=== PATIENT | female | born 1960 | race Caucasian/White ===

== ENCOUNTER → 2019-10-20 17:00 | Outpatient (BNVA) | payer MEDICARE, SELFPAY | PROVIDERS: Family Provider Internal Medicine; PCP Internal Medicine; Visit Provider Specialist | DX: S82.831A Other fracture of upper and lower end of right fibula, initial encounter for closed fracture (principal); X58.XXXA Exposure to other specified factors, initial encounter | CPT/HCPCS: 73610 ==

== ENCOUNTER 2019-10-28 21:40 | Emergency (ER) | payer MEDICARE, SELFPAY ==
[2019-10-28 22:31] VITALS: BP 154/110; PULSE 128; RESP 22; TEMP 36.8; O2SAT 95; BMI 24.9
[2019-10-28 23:26] LABS: Add Urine Microscopic? YES; Bilirubin Urine Neg (NEGATIVE); Blood Urine 3+ (Negative); Glucose Urine UA Norm (Normal); Ketones Urine Negative (Negative); Leukocyte Esterase Urine Negative (Negative); Nitrate Urine Negative (Negative); Protein Urine Neg (Negative); Specific Gravity, Urine 1.015 (1.005-1.030); Urine Appearance Clear (CLEAR); Urine Color Yellow (Yellow); Urobilinogen Urine Norm (Negative); pH Urine 5 (5-7)
[2019-10-28 23:28] LABS: Add Urine Culture? Yes; Bacteria Urine TRACE
--- NOTE | 2019-10-28 23:47 | CTR_ITS ---
PROCEDURE INFORMATION: Exam: CT Abdomen And Pelvis Without Contrast Exam date and time: 10/28/2019 11:52 PM Age: 58 years old Clinical indication: Abdominal pain; Flank; Right; Prior surgery; Surgery date: 6+ months; Surgery type: RT hip, spleenectomy; Additional info: Hematuria right flank pain TECHNIQUE: Imaging protocol: Computed tomography of the abdomen and pelvis without contrast. Total DLP: 904.01 mGy-cm Radiation optimization: All CT scans at this facility use at least one of these dose optimization techniques: automated exposure control; mA and/or kV adjustment per patient size (includes targeted exams where dose is matched to clinical indication); or iterative reconstruction. COMPARISON: CT Abdomen/Pelvis Renal [id number] 07/31/2018 1:55 PM FINDINGS: Lungs: Lung bases are clear. Mediastinum: There is a moderate size sliding-type hiatal hernia. Liver: 9 mm simple cyst in the caudate lobe. The liver is otherwise normal. Gallbladder and bile ducts: The gallbladder is normal. There is no biliary dilation. Pancreas: The pancreas is unremarkable. Spleen: The spleen is absent. Adrenals: The adrenal glands are unremarkable. Kidneys and ureters: Severe right hydronephrosis and diffuse hydroureter. There is a stone at the right ureterovesical junction measuring 5 x 3 mm axial dimension and 6 mm length. No intrarenal stones on the right. Nonobstructive left renal stones are present. There is a 5 x 4 x 3 mm stone in the proximal left ureter at the level of L3. No hydronephrosis on the left. The right-sided distal ureteral stone is visible on the principal architectural firm radiograph. Left-sided ureteral stone is not visible. Stomach and bowel: The stomach is unremarkable. The small bowel is nondilated. There is no sign of inflammation. There is mild distal colonic diverticulosis without evidence of diverticulitis. Appendix: The appendix is normal. Intraperitoneal space: There is no free air or significant intraperitoneal free fluid. Vasculature: There is mild aortic atherosclerotic disease. Lymph nodes: There is no lymphadenopathy in the retroperitoneum, mesentery, pelvis or inguinal regions. Bladder: The urinary bladder is unremarkable. Reproductive: The uterus is unremarkable. There is no adnexal mass or large cyst. Bones/joints: Mild degenerative disc disease L5-S1. The right hip prosthesis is intact and well aligned. Soft tissues: The abdominal wall is intact. CT/CT kidney stone [id number] IMPRESSION: 1. 6 mm obstructive stone at the right ureterovesical junction producing severe hydronephrosis. 2. 5 mm nonobstructive stone in the proximal left ureter. No hydronephrosis. 3. Nonobstructive left nephrolithiasis. 4. Incidental findings above. Radiation Dose CTDIVOL = (mGy): DLP = 904.01 (mGy-cm)
--- NOTE | 2019-10-29 00:01 | ED_ITS ---
HPI - Female Genitourinary General: Chief complaint: Urogenital-Female Stated complaint: FREQUENT URINATION/BACK PAIN Time Seen by Provider: 10/28/19 23:23 History of Present Illness: HPI Narrative: Right flank pain today with urinary frequency since yesterday. History kidney stone x1 MD elicited complaint: dysuria Associated symptoms: Reports no associated symptoms and nausea; Deny abdominal pain, headache(s) or vaginal discharge Review of Systems Narrative: Patient is a chronic pain patient. Does have right flank pain and urinary frequency Const: Denies: fever, chills or body aches Eyes: Denies: change in vision or blurry vision ENMT: Denies: throat pain or nasal congestion Card: Denies: chest pain or shortness of breath on exertion Resp: Denies: shortness of breath, productive cough or non-productive cough GI: Reports: nausea; Denies: abdominal pain or vomiting : Reports: flank pain (Right side) and urinary urgency; Denies: urinary incontinence or vaginal discharge Musc: Denies: extremity pain Skin/Breast: Denies: rash Neuro: Denies: headache Psych: Denies: anxiety or depression Iban/Lymph: Denies: easy bruising PFSH ED PFSH: Statuses (acute, chronic, etc) shown below reflect problem list status as previously entered and may not be historically accurate Medical History (Updated 10/21/19 @ 09:04 by Camelia Duarte MD) Avascular necrosis of bone of right hip (Acute) Other fracture of upper and lower end of right fibula, initial encounter for closed fracture (Acute) Healing Primary osteoarthritis of right hip (Acute) Trochanteric bursitis of right hip (Acute) Surgical History History of total right hip arthroplasty (Inactive) Social History Smoking and tobacco status: former smoker Quit status (tobacco): has quit using tobacco Alcohol intake: current Alcohol intake frequency: holidays/special occasions only Physical Exam Const: COMMON NORMALS: no apparent distress, average body habitus and oriented x3 HENMT: COMMON NORMALS: normocephalic HEAD & SCALP: normal to inspection and normocephalic FACE & SINUS: normal facial exam Eye: COMMON NORMALS: conjunctivae normal GENERAL EYE: normal appearance of both eyes CONJUNCTIVA: Yes conjunctivae normal Neck/C-Spine: COMMON NORMALS: no JVD Chest: COMMONS NORMALS: inspection of chest normal Resp: COMMON NORMALS: normal respiratory effort and clear to auscultation bilaterally AUSCULTATION: clear to auscultation bilaterally Cardio: COMMON NORMALS: no JVD, regular rate and regular rhythm RATE: regular rate RHYTHM: regular rhythm GI: COMMON NORMALS: normal to inspection, nondistended, normoactive bowel sounds : BLADDER/KIDNEY EXAM: Yes CVA tenderness on the right Back/Pelvis: GENERAL BACK: Yes CVA tenderness Extremity: COMMON NORMALS: normal to inspection and full ROM Neuro: COMMON NORMALS: oriented x3 Course Vital Signs: Vital signs: Vital Signs Temperature 98.3 F 10/28/19 22:31 Pulse Rate 128 H 10/28/19 22:31 Respiratory Rate 22 H 10/28/19 22:31 Blood Pressure 154/110 10/28/19 22:31 Pulse Oximetry 95 10/28/19 22:31 MDM - Female Lab Data: Labs: Lab Results 10/28/19 Range/Units 22:58 Urine Color Yellow (Yellow) Urine Appearance Clear (CLEAR) Urine pH 5 (5-7) Ur Specific Gravit y 1.015 (1.005-1.030) Urine Protein Neg (Negative) Urine Glucose (UA) Norm (Normal) Urine Ketones Negative (Negative) Urine Occult Blood 3+ H (Negative) Urine Nitrate Negative (Negative) Urine Bilirubin Neg (NEGATIVE) Urine Urobilinogen Norm (Negative) mg/dL Ur Leukocyte Beatrice ase Negative (Negative) Urine RBC 10-15 H (0-2) /hpf Urine WBC None (0-5) /hpf Ur Squamous Epith Cells None (0-5) Ur Transition Epit h Cell None /hpf Ur Renal Epithelia l Cell None /hpf Urine Bacteria Trace (NONE) Discharge Plan Discharge Prescriptions: No Action diazepam 10 mg tablet 10 mg PO BID PRNRF: 0 trazodone 150 mg tablet PO RF: 0 gabapentin 300 mg capsule 300 mg PO TID RF: 0 oxycodone-acetaminophen [Percocet] 7.5-325 mg tablet 1 tab PO TID PRNRF: 0 phenazopyridine [Pyridium] 100 mg tablet 100 mg PO TID PRNRF: 0 omeprazole 40 mg capsule,delayed release(DR/EC) 40 mg PO BID RF: 0 atorvastatin 20 mg tablet 20 mg PO ONCE RF: 0 Coding Level of Care Code ED Instant Printer Operator for Lyric Duran Exam Problem Focused
[2019-10-29 00:12] VITALS: RESP 16
[2019-10-29] MEDS: meperidine 50 mg/mL INJ IVP (00:12)
[2019-10-29] MEDS: sodium chloride 0.9% 1,000 ML 999 ML IV (00:12)
[2019-10-29] MEDS: ondansetron 2 mg/ML SDV 2 mL 8 MG IVP (00:13)
[2019-10-29 01:20] VITALS: PULSE 104; RESP 18; O2SAT 98
--- NOTE | 2019-10-29 10:01 | DCPLANNER ---
laboratory manager had message to schedule a follow up appointment for patient with Dr. Allen. laboratory manager called the office of Dr. Allen, spoke with Nelly, gave clinic patients information. laboratory manager was told that patients information would be printed and given to Mesha for review. Clinic will call patient with appointment information, human services case manager will call clinic for appointment information.
--- NOTE | 2019-11-04 12:46 | DCPLANNER ---
Patient had a follow up appointment scheduled for 10.30.[address] Schulte office, patient did attend the appointment.
== END 2019-10-29 01:20 | disposition home or self-care (01) ==
PROVIDERS: Emergency Medicine; Emergency Provider Nurse Practitioner Family; Family Provider Internal Medicine; PCP Internal Medicine
DX: R35.0 Frequency of micturition (principal); Z87.891 Personal history of nicotine dependence
CPT/HCPCS: 74176; 81003; 87086; 96360; 96374; 99282; J2175; J2405; J7030

== ENCOUNTER 2019-10-30 11:14 | Outpatient (CLI) | payer MEDICARE, SELFPAY ==
--- NOTE | 2019-10-30 11:18 | XR_ITS ---
WS: [id number] ABDOMEN 1 VIEW(S) HISTORY: RIGHT URETERAL STONE COMPARISON: 08/26/2018, CT 10/29/2019 Normal bowel gas pattern. Stable 7.8 mm lobulated calcification projects over the LEFT kidney. There is an additional smaller c luster of stones in the LEFT abdomen which are probably also present on prior studies. Distal RIGHT u reteral calcification described on 10/29/2019 measures 5 mm. Again identified at the expected location of the RIGHT UV junction. Prior RIGHT hip arthroplasty. IVC filter. XR/XR KUB [id number] IMPRESSION: 1. Distal RIGHT ureteral calcification measures 5 mm at the UV junction. 2. LEFT nephrolithiasis, stable.
== END 2019-10-30 11:15 | disposition home or self-care (01) ==
PROVIDERS: Family Provider Internal Medicine; PCP Internal Medicine; Visit Provider Urology
DX: N20.2 Calculus of kidney with calculus of ureter (principal)
CPT/HCPCS: 74018

== ENCOUNTER 2019-10-31 11:39 | Day surgery (SDC) | payer MEDICARE, SELFPAY ==
[2019-10-30 14:59] VITALS: BMI 24.5
[2019-10-31] VITALS (8 sets, daily range): BP systolic 124–150; BP diastolic 69–106; PULSE 72–90; RESP 16–18; TEMP 36.6–37.2; O2SAT 94–100
--- NOTE | 2019-10-31 | SCC_ITS ---
Procedure Done: 1. Cystoscopy, bilateral retrograde ureteropyelogram's 2. Right ureteroscopy 3. Left ureteroscopy with stone extraction 4. Left ureteral stent placement 51 seconds of fluoroscopic guidance, for a cumulative dose of 8.86 mGy, was provided to Dr. Allen by the radiology department. No permanent C-tawana images were obtained. [facility]
[2019-10-31] MEDS: sodium chloride 0.9% 1,000 ML 30 ML IV (11:45)
--- NOTE | 2019-10-31 11:55 | XR_ITS ---
WS: [id number] ABDOMEN KUB CLINICAL INFORMATION: Renal/ureteral calculi. COMPARISON: and CT FINDINGS: IVC filter. Right ROB. Normal bowel gas pattern. Mild lumbar curve convex right. Osteopenia. Stable clusters of subcentimeter left renal parenchymal calculi the largest measuring 7 mm unchanged. Previously described 5 mm right UVJ calculus not well seen today. XR/XR KUB [id number] Impression: 1. Stable clusters of subcentimeter left renal parenchymal calculi the largest measuring 7 mm. 2. Previously described 5 mm right UVJ calculus not well seen today.
[2019-10-31] MEDS: iohexol 300 mg/mL 50 mL Btl (OR ONLY) XX (12:10)
--- NOTE | 2019-10-31 12:18 | SC_ITS ---
WS: [id number] INTRAOPERATIVE TECHNIQUE: 1 Spot fluoroscopic images for intraoperative purposes. FLUOROSCOPY TIME: 51 seconds CLINICAL INFORMATION: intra-op COMPARISON: None. FINDINGS: Images obtained for intraoperative purposes SC/C-arm FL for Urology IMPRESSION: Images obtained for intraoperative purposes.
--- NOTE | 2019-10-31 12:41 | ANES.PREANES ---
Pre-Anesthetic Assessment Pre-Anesthetic Assessment: Height/Weight: Height 1.64 m Weight 65.771 kg Temp Pulse Resp BP Pulse Ox 98.9 F 72 18 125/80 94 10/31/19 12:07 10/31/19 12:07 10/31/19 12:07 10/31/19 12:07 10/31/19 12:07 Preop Diagnosis: Bilateral ureteral calculi Proposed Procedure: Operation Date: 10/31/19 13:00 Proposed Procedures p Cystoscopy 83213 25543 26401 n20 n20.1 n13.30(Not Applicable) - MD marissa Ortega Retrograde Pyelogram(Bilateral) - MD marissa Ortega Flexible Ureteroscopy(Not Applicable) - MD marissa Ortega Laser Lithotripsy(Not Applicable) - MD marissa Ortega Ureteral Stent Placement(Not Applicable) - Ben Allen MD Last intake: Intake Last Liquid Date 10/30/19 Last Liquid Time 19:00 Last Solid Date 10/30/19 Last Solid Time 19:00 Social: Social History: Tobacco Packs per day: 3 cigs a day x 42 years Exam: Pre-Anes Outpt Exam: alert, oriented x 3, clear to auscultation bilaterally and regular rate & rhythm Pulmonary: Comments: pneumonia recurrent : : None reported Comments: bilateral calcului GI: GI: GERD Comments: omeprazole well controlled Musc/skel: Musc/skel: Lower Back Pain Comments: right radiculopahy Neuropsych: Neuropsych: Anxiety Anesthetic Plan: ASA status: III Anesthesia: General PFSH Anesthesia PFSH: Social History Smoking and tobacco status: former smoker Quit status (tobacco): has quit using tobacco Alcohol intake: current Alcohol intake frequency: holidays/special occasions only Adopted: No Caregiver/support person: No Lives independently: No Marital status: Current occupational status: disabled Data Anesthesia Cardiac Studies: No Data to Display
[2019-10-31 13:11] LABS: OR HCG Qualitative Urine Negative (Negative)
--- NOTE | 2019-10-31 13:18 | PM.HPUD ---
H&P update H&P Update: DATE OF SURGERY/PROCEDURE: 10/31/19 DATE H&P PERFORMED: 10/30/19 CHANGES TO PREVIOUS DOCUMENTATION: Increased left renal colicky type symptoms. Resolution of right renal colicky symptoms. Unaware of having passed the right-sided stone. KUB shows new calcification in the area of the left distal ureter and the right distal ureteral calcification is no longer seen. PREOP DIAGNOSIS: Bilateral ureteral calculi. Possible spontaneous passage of right PRIMARY INDICATION FOR PROCEDURE: Bilateral ureteral stones PLANNED PROCEDURE: Operation Date: 10/31/19 13:00 Proposed Procedures p Cystoscopy 21122 25206 74913 n20 n20.1 n13.30(Not Applicable) - MD marissa Ortega Retrograde Pyelogram(Bilateral) - MD marissa Ortega Flexible Ureteroscopy(Not Applicable) - MD marissa Ortega Laser Lithotripsy(Not Applicable) - MD marissa Ortega Ureteral Stent Placement(Not Applicable) - Ben Allen MD Full H&P Medications/Allergies: Current Medications: Current Medications Generic Name Dose Route Start Last Admin Trade Name Freq PRN Reason Stop Dose Admin Sodium Chloride 1,000 mls @ 30 ml s/hr 10/31/19 12:00 10/31/19 11:45 Sodium Chloride 0.9% IV 11/01/19 11:59 30 mls/hr .Q24H ASHKAN Administration Perinent History: Medical/Surgical History: Medical History (Updated 10/30/19 @ 12:52 by Ben Allen MD) Avascular necrosis of bone of right hip (Acute) Other fracture of upper and lower end of right fibula, initial encounter for closed fracture (Acute) Healing Primary osteoarthritis of right hip (Acute) Renal and ureteric calculus (Acute) Trochanteric bursitis of right hip (Acute) Ureteral stone (Acute) Family History: Family History (Updated 10/29/19 @ 15:57 by BILLIE Jiménez) Mother Hypertension Social History: Social History Smoking and tobacco status: former smoker Quit status (tobacco): has quit using tobacco Alcohol intake: current Alcohol intake frequency: holidays/special occasions only Adopted: No Caregiver/support person: No Lives independently: No Marital status: Current occupational status: disabled A&P Assessment and plan (1) Ureteral stone: Proceed with planned surgery. Status: Acute Code(s): N20.1 - Calculus of ureter
[2019-10-31] MEDS: levofloxacin-dextrose 5 % 500 MG/100 ML PREMIX 100 MG IV (13:27)
--- NOTE | 2019-10-31 14:30 | PM.OP ---
Operative Report Date of procedure: 10/31/19 Pre-op Diagnosis: Bilateral ureteral calculi. Possible spontaneous passage of right Post-op Diagnosis: Spontaneous passage of right ureteral stone Persistence of left distal ureteral stone Post-op Findings: Right retrograde ureteropyelogram and right distal ureteroscopy demonstrated no residual stone. Left distal ureteral stone in expected position. Removed without difficulty with grasping forceps Procedure Done: 1. Cystoscopy, bilateral retrograde ureteropyelogram's 2. Right ureteroscopy 3. Left ureteroscopy with stone extraction 4. Left ureteral stent placement Implants: 24 cm x 4.7 Greenlandic left ureteral stent left indwelling. String attached distally Specimens removed/disposition: Left distal ureteral stone Pathology: other (stone) Surgeon: Ben Allen Anesthesia: General Estimated blood loss (mL): 0 Estimated blood loss: None Urine output: Not measured Complications: None Findings: The right distal ureteral stone had passed. The left distal ureteral stone (previously seen in the left proximal ureter) was in the expected position based on the preoperative KUB and removed without having to fragment it. Ureteral stent left indwelling at the completion of the procedure Condition: stable Disposition: PACU Brief History: Joselyn is a very pleasant 58-year-old white female recently diagnosed with bilateral ureteral stones right distal and left mid. The right was obstructing the left was not. No evidence of infection or renal failure. Admitted now for treatment. Preoperative KUB showed that the right distal ureteral stone was no longer seen and the left mid ureteral stone appeared to have migrated into the left distal ureteral area. Procedure: After routine preoperative evaluation examination and obtaining of informed consent she was taken to the operating suite on 10/31/2019 where general anesthesia was administered without difficulty after appropriate timeout was performed, SCDs confirmed to be functioning, preoperative antibiotics administered, beta-alberto protocol confirmed. Prepped and draped in usual sterile fashion in dorsolithotomy position pain careful attention to avoiding pressure points. 21 Greenlandic cystoscope with 30 degree lens was introduced into the urethral meatus and advanced into the bladder videoscopy. Bladder was systematically examined. The right ureteral orifice showed some edema. The left appeared to be normal. An 8 Greenlandic cone-tipped catheter was intubated into the right ureter orifice for a RIGHT RETROGRADE URETEROPYELOGRAM demonstrating no residual stone in the ureter. The ureter had significantly diminished in size after spontaneous passage. The catheter was intubated into the left ureteral orifice for the similar findings and confirmed the stone in the ureter approximately 3 cm above the ureteral orifice. Flexible tip guidewire was advanced of the left ureter easily bypassing the stone and then the distal ureter was attempted to be intubated with a 7.5 Greenlandic offset semirigid ureteroscope but the ureteral orifice was too tight for that. The distal ureter was then dilated with a 15 Greenlandic 4 cm balloon with no waist. This allowed easy passage of the offset semirigid ureteroscope and the stone was encountered in the expected position, grasped with 3 Greenlandic grasping forceps and withdrawn with absolutely no tension. The ureter was then reinspected. A retrograde ureteropyelogram was then performed and did show some edema with retention of contrast and for that reason it was decided to leave the stent indwelling. A 4.7 Greenlandic by 24 cm double-pigtail stent with distal ureteral string attached was then advanced over the guidewire through the cystoscope into appropriate position as confirmed via fluoroscopy and cystoscopy. The stent was confirmed to be draining. Bladder drained and the procedure completed. The string was shortened. She tolerated the procedure well without complications and was awakened in the operating room and returned to recovery in stable condition. PLANS: 1. Return to clinic next week for stent removal. 2. Continue routine medications with no new prescription
[2019-11-06 01:48] LABS: Stone Source LEFT URETER
== END 2019-10-31 15:42 | disposition home or self-care (01) ==
PROVIDERS: Anesthesiology; Family Provider Internal Medicine; PCP Internal Medicine; Visit Provider Urology
PROC: 0TJB8ZZ Inspection of Bladder, Via Natural or Artificial Opening Endoscopic (ICD-10-PCS; CPT 52000; principal; 2019-10-31 13:00)
PROC: (CPT 74420; 2019-10-31 13:00)
PROC: 0TJ98ZZ Inspection of Ureter, Via Natural or Artificial Opening Endoscopic (ICD-10-PCS; CPT 52351; 2019-10-31 13:00)
PROC: (CPT 50605; 2019-10-31 13:00)
DX: N20.1 Calculus of ureter (principal); M16.11 Unilateral primary osteoarthritis, right hip; Z87.891 Personal history of nicotine dependence
CPT/HCPCS: 52332; 52352; 12345; 36415; 74018; 76000; 82365; 84703; 88300; 96375; C1725; J1100; J1956; J2405; J2704; J2710; J3010; J3490; J7030

== ENCOUNTER → 2019-11-04 13:01 | Outpatient (BNVA) | payer MEDICARE, SELFPAY | PROVIDERS: Family Provider Internal Medicine; PCP Internal Medicine; Visit Provider Urology | DX: N20.0 Calculus of kidney (principal); Z96.0 Presence of urogenital implants; N13.30 Unspecified hydronephrosis | CPT/HCPCS: 81001 ==

== ENCOUNTER → 2019-11-10 15:55 | Outpatient (BNVA) | payer MEDICARE, SELFPAY | PROVIDERS: Family Provider Internal Medicine; PCP Internal Medicine; Visit Provider Specialist | DX: S82.891A Other fracture of right lower leg, initial encounter for closed fracture (principal); X58.XXXA Exposure to other specified factors, initial encounter | CPT/HCPCS: 73610 ==

== ENCOUNTER → 2019-11-25 14:28 | Outpatient (BNVA) | payer MEDICARE, SELFPAY | PROVIDERS: Family Provider Internal Medicine; PCP Internal Medicine; Visit Provider Anesthesiology | DX: M54.5 Low back pain (principal); M54.31 Sciatica, right side; M16.11 Unilateral primary osteoarthritis, right hip; F17.210 Nicotine dependence, cigarettes, uncomplicated; Z79.891 Long term (current) use of opiate analgesic | CPT/HCPCS: 99214 ==

== ENCOUNTER → 2020-04-29 13:13 | Outpatient (BNVA) | payer MEDICARE, SELFPAY | PROVIDERS: Family Provider Internal Medicine; PCP Internal Medicine; Visit Provider Nurse Practitioner | DX: M54.41 Lumbago with sciatica, right side (principal); M54.9 Dorsalgia, unspecified; Z79.891 Long term (current) use of opiate analgesic | CPT/HCPCS: 99213 ==

== ENCOUNTER → 2020-06-24 14:17 | Outpatient (BNVA) | payer MEDICARE, SELFPAY | PROVIDERS: Family Provider Internal Medicine; PCP Internal Medicine; Visit Provider Nurse Practitioner | DX: M54.31 Sciatica, right side (principal); M16.11 Unilateral primary osteoarthritis, right hip; S06.9X9A Unspecified intracranial injury with loss of consciousness of unspecified duration, initial encounter; X58.XXXA Exposure to other specified factors, initial encounter; M54.9 Dorsalgia, unspecified; Z79.891 Long term (current) use of opiate analgesic | CPT/HCPCS: 99214 ==

== ENCOUNTER → 2020-07-22 14:05 | Outpatient (BNVA) | payer MEDICARE, SELFPAY | PROVIDERS: Family Provider Internal Medicine; PCP Internal Medicine; Visit Provider Anesthesiology | DX: G89.4 Chronic pain syndrome (principal); M54.31 Sciatica, right side; M54.9 Dorsalgia, unspecified; Z79.891 Long term (current) use of opiate analgesic; Z71.6 Tobacco abuse counseling | CPT/HCPCS: 99214 ==

== ENCOUNTER 2020-08-20 15:09 | Outpatient (CLI) | payer MEDICARE, SELFPAY ==
--- NOTE | 2020-08-20 15:17 | MM_ITS ---
WS: [id number] BILATERAL DIGITAL SCREENING MAMMOGRAPHY WITH CAD CLINICAL INFORMATION: SCREENING HISTORY: Screening mammogram. No current complaints. COMPARISON: TECHNIQUE: Bilateral CC and MLO views. FINDINGS: The breasts are composed of heterogeneous fibroglandular density tissue, which can limit the detectio n of small underlying mass lesions. No suspicious mass, asymmetry, calcifications, or architectural d istortion. No evidence of malignancy. A few tiny punctate calcifications are stable. MM/[place] [id number] IMPRESSION: BI-RADS: 2-Benign FOLLOW UP: 1 Year Follow-up Recommend return to annual screening mammography.
== END 2020-08-20 15:10 | disposition home or self-care (01) ==
LOC: RADSHAW 15:14
PROVIDERS: PCP Internal Medicine; Visit Provider Internal Medicine
DX: Z12.31 Encounter for screening mammogram for malignant neoplasm of breast (principal)
CPT/HCPCS: 77067

== ENCOUNTER → 2020-09-30 13:34 | Outpatient (BNVA) | payer MEDICARE, SELFPAY | PROVIDERS: Family Provider Internal Medicine; PCP Internal Medicine; Visit Provider Anesthesiology | DX: G89.29 Other chronic pain (principal); M54.41 Lumbago with sciatica, right side; M54.9 Dorsalgia, unspecified; Z79.891 Long term (current) use of opiate analgesic | CPT/HCPCS: 99213; 99214 ==

== ENCOUNTER → 2020-12-07 13:49 | Outpatient (BNVA) | payer MEDICARE, SELFPAY | PROVIDERS: Family Provider Internal Medicine; PCP Internal Medicine; Visit Provider Anesthesiology | DX: G89.29 Other chronic pain (principal); M54.41 Lumbago with sciatica, right side; M54.9 Dorsalgia, unspecified; Z79.891 Long term (current) use of opiate analgesic | CPT/HCPCS: 99213 ==

== ENCOUNTER 2021-01-07 14:15 | Outpatient (CLI) | payer MEDICARE, SELFPAY ==
--- NOTE | 2021-01-07 14:31 | XR_ITS ---
WS: [id number] ELBOW LEFT TECHNIQUE: 3 views of the left elbow CLINICAL INFORMATION: LEFT ELBOW PAIN COMPARISON: None. FINDINGS: No significant joint effusion. Distal humerus is normal in appearance. Normal radial head. Normal ole cranon. No evidence of acute fracture dislocation. XR/XR elbow LT min 3V* [id number] IMPRESSION: Unremarkable left elbow
== END 2021-01-07 14:16 | disposition home or self-care (01) ==
PROVIDERS: PCP Internal Medicine; Visit Provider Nurse Practitioner Family
DX: M25.522 Pain in left elbow (principal)
CPT/HCPCS: 73080

== ENCOUNTER → 2021-02-02 13:45 | Outpatient (BNVA) | payer MEDICARE, SELFPAY | PROVIDERS: PCP Internal Medicine; Visit Provider Anesthesiology | DX: G89.29 Other chronic pain (principal); M54.9 Dorsalgia, unspecified; M54.41 Lumbago with sciatica, right side; M79.632 Pain in left forearm; Z79.891 Long term (current) use of opiate analgesic | CPT/HCPCS: 99214 ==

== ENCOUNTER → 2021-03-31 13:08 | Outpatient (BNVA) | payer MEDICARE, SELFPAY | PROVIDERS: PCP Internal Medicine; Visit Provider Anesthesiology | DX: G89.29 Other chronic pain (principal); M54.41 Lumbago with sciatica, right side; M54.9 Dorsalgia, unspecified; Z79.891 Long term (current) use of opiate analgesic; Z87.891 Personal history of nicotine dependence | CPT/HCPCS: 99213 ==

== ENCOUNTER → 2021-04-04 08:21 | Outpatient (BNVA) | payer MEDICARE, SELFPAY | PROVIDERS: PCP Internal Medicine; Referring Provider Internal Medicine; Visit Provider Specialist | DX: M25.522 Pain in left elbow (principal); M79.632 Pain in left forearm; M79.7 Fibromyalgia; M77.8 Other enthesopathies, not elsewhere classified; Z87.891 Personal history of nicotine dependence | CPT/HCPCS: 20550; 95885; 95908; 99202; J1030; J3490 ==

== ENCOUNTER → 2021-05-26 13:55 | Outpatient (BNVA) | payer MEDICARE, SELFPAY | PROVIDERS: PCP Internal Medicine; Visit Provider Anesthesiology | DX: G89.29 Other chronic pain (principal); M54.41 Lumbago with sciatica, right side; Z79.891 Long term (current) use of opiate analgesic | CPT/HCPCS: 99213 ==

== ENCOUNTER 2021-07-11 11:28 | Outpatient (CLI) | payer MEDICARE, SELFPAY ==
--- NOTE | 2021-07-11 | XR_ITS ---
WS: [id number] LUMBAR SPINE TECHNIQUE: 3 views of the lumbar spine CLINICAL INFORMATION: SACROILIAC JOINT PAIN LUMBAGO WITH SCIATIACA LEFT SIDE COMPARISON: None. FINDINGS: Five sig-lea-klsynzv lumbar vertebral bodies. IVC filter. Osteopenia. Right ROB. Disc space narrowing L5-S1 with vacuum disc phenomenon. Mild facet arthropathy L5-S1 with bony foraminal narrowing. Mild degenerative arthritis sacroiliac joints. IMPRESSION: 1. Right ROB. 2. Disc space narrowing worse L5-S1 vacuum disc phenomenon. 3. Mild degenerative arthritis sacroiliac joints. 4. Osteopenia. 5. No acute appearing compression fractures.
== END 2021-07-11 11:29 | disposition home or self-care (01) ==
PROVIDERS: PCP Internal Medicine; Visit Provider Nurse Practitioner Family
DX: M53.3 Sacrococcygeal disorders, not elsewhere classified (principal); M54.42 Lumbago with sciatica, left side; Z96.641 Presence of right artificial hip joint; M46.1 Sacroiliitis, not elsewhere classified; M85.80 Other specified disorders of bone density and structure, unspecified site
CPT/HCPCS: 72100

== ENCOUNTER → 2021-07-27 13:30 | Outpatient (BNVA) | payer MEDICARE, SELFPAY | PROVIDERS: PCP Internal Medicine; Visit Provider Anesthesiology | DX: G89.29 Other chronic pain (principal); M54.50 Low back pain, unspecified; Z79.891 Long term (current) use of opiate analgesic | CPT/HCPCS: 99213 ==

== ENCOUNTER 2021-08-18 10:53 | Outpatient (CLI) | payer MEDICARE, SELFPAY ==
--- NOTE | 2021-08-18 11:00 | MR_ITS ---
WS: [id number] MRI LUMBAR SPINE NONCONTRAST TECHNIQUE: Sagittal T1, T2 and STIR imaging. Axial T1 and T2 imaging. CLINICAL INFORMATION: M54.16 - Radiculopathy, lumbar region COMPARISON: None. FINDINGS: Mild lumbar curve. No acute compression. No high-grade central canal stenosis. L1-L2: Mild disc bulging with slight effacement of ventral thecal sac. Mild facet arthropathy. Spinal canal and foramen are patent. L2-L3: Mild annular bulging with mild central canal stenosis. Narrowing of the subarticular recess bi laterally. Mild facet arthropathy. Foramen are patent. Tiny annular fissure. L3-L4: No significant disc bulging. Mild facet arthropathy. Spinal canal and foramen are patent. L4-L5: Mild annular bulging with slight narrowing of the subarticular recess bilaterally. Slight encr oachment traversing L5 nerve roots. Foramen are patent. Mild facet arthropathy. L5-S1: Small bilobed central and left pericentral disc protrusion with impingement on traversing left S1 nerve root. Recommend correlation for left S1 nerve root symptoms. Mild right and no significant left foraminal narrowing. MR/MR lumbar spine wo con* [id number] IMPRESSION: 1. Mild lumbar curve. No acute compression. No high-grade central canal stenos is. 2. Small central and left pericentral disc protrusion impinges the traversing left S1 nerve root in the subarticular recess. Recommend correlation left S1 ne rve root symptoms. 3. Mild annular bulging L2-3 with a small annular fissure. Mild central canal stenosis. Slight encroachment traversing L3 nerve roots bilaterally. 4. Annular bulging L4-5 with slight encroachment on the traversing L5 nerve ro ots bilaterally. 5. Shallow bilobed central protrusion L1-2 with slight effacement of ventral t hecal sac.
== END 2021-08-18 10:54 | disposition home or self-care (01) ==
LOC: RADSHAW 10:56
PROVIDERS: PCP Internal Medicine; Visit Provider Physician Assistant
DX: M54.16 Radiculopathy, lumbar region (principal); M51.26 Other intervertebral disc displacement, lumbar region
CPT/HCPCS: 72148

== ENCOUNTER → 2021-09-01 08:19 | Outpatient (BNVA) | payer MEDICARE, SELFPAY | PROVIDERS: PCP Internal Medicine; Visit Provider Anesthesiology | DX: M54.50 Low back pain, unspecified (principal); G89.29 Other chronic pain; M54.16 Radiculopathy, lumbar region; M51.37 Other intervertebral disc degeneration, lumbosacral region | CPT/HCPCS: 62323; J1040; J3490 ==

== ENCOUNTER → 2021-10-17 00:01 | Outpatient (BNVA) | payer MEDICARE, SELFPAY | PROVIDERS: PCP Internal Medicine; Visit Provider Orthopaedic Surgery | DX: M54.16 Radiculopathy, lumbar region (principal) | CPT/HCPCS: 87635 ==

== ENCOUNTER → 2021-10-18 10:18 | Outpatient (BNVA) | payer MEDICARE, SELFPAY | PROVIDERS: PCP Internal Medicine; Visit Provider Anesthesiology | DX: G89.29 Other chronic pain (principal); M54.16 Radiculopathy, lumbar region; M51.37 Other intervertebral disc degeneration, lumbosacral region; Z79.891 Long term (current) use of opiate analgesic; Z87.891 Personal history of nicotine dependence | CPT/HCPCS: 99213 ==

== ENCOUNTER → 2021-10-24 00:01 | Outpatient (BNVA) | payer MEDICARE, SELFPAY | PROVIDERS: PCP Internal Medicine; Visit Provider Orthopaedic Surgery | DX: M51.37 Other intervertebral disc degeneration, lumbosacral region (principal); M54.16 Radiculopathy, lumbar region | CPT/HCPCS: 87635 ==

== ENCOUNTER 2021-10-28 06:31 | Day surgery (SDC) | payer MEDICARE, SELFPAY ==
[2021-10-27 12:03] VITALS: BMI 24.9
--- NOTE | 2021-10-27 12:25 | ANES.PREANE2 ---
Pre-Anesthetic Assessment Pre-Anesthetic Assessment: Height/Weight: Height 1.63 m Weight 65.771 kg Preop Diagnosis: Bilateral ureteral calculi. Possible spontaneous passage of right Proposed Procedure: Operation Date: 10/28/21 08:00 Proposed Procedures p Lumbar Spine Decompression L5/S1(Not Applicable) - Hector Romero, DO Was Beta Vicki taken within 24 hours: N/A Was Clonidine taken within 24 hours: N/A Social: Social History: Tobacco and No alcohol Exam: Pre-Anes Outpt Exam: alert, oriented x 3, clear to auscultation bilaterally and regular rate & rhythm Airway: Submandibular: WNL Cervical ROM: WNL MP: 1 Additional comments: PROFOUND DENTAL DISEASE THROUGHOUT Pulmonary: Pulmonary: COPD CV/HEM: CV/HEM: None reported : : None reported Hepatic: Hepatic: None reported GI: GI: GERD Metabolic: Metabolic: Hyperlipidemia Musc/skel: Musc/skel: Lower Back Pain, OA/DJD and Weakness Comments: Left Leg Pain Neuropsych: Neuropsych: Anxiety Anesthetic Plan: ASA status: 3 Anesthesia: General PFSH Anesthesia PFSH: Medical History Acute back pain Anorexia Arthritis of right hip Avascular necrosis of bone of right hip CA of rectum Chronic back pain Chronic depression Encounter for long-term opiate analgesic use NICOLE (generalized anxiety disorder) Hx of hepatitis C Left forearm pain Opioid contract exists Other fracture of upper and lower end of right fibula, initial encounter for closed fracture Primary osteoarthritis of right hip Renal and ureteric calculus Sciatica, right side Trochanteric bursitis of right hip Ureteral calculus, right Ureteral stone Surgical History H/O left knee surgery History of rectal surgery History of total right hip arthroplasty Hx of brain surgery Hx of dilation and curettage Hx of lithotripsy Hx of splenectomy Hx of tonsillectomy Status post laser lithotripsy of ureteral calculus Family History Mother Hypertension Social History Smoking and tobacco status: former smoker Quit status (tobacco): has quit using tobacco Second hand smoke exposure: No Alcohol intake: never Adopted: No Caregiver/support person: No Lives independently: No Marital status: Current occupational status: disabled History of recent travel: No Data Anesthesia Cardiac Studies: No Data to Display
[2021-10-28] VITALS (18 sets, daily range): BP systolic 122–174; BP diastolic 71–102; PULSE 60–87; RESP 15–20; TEMP 36.1–36.8; O2SAT 93–100
--- NOTE | 2021-10-28 | SCC_ITS ---
Procedure Done: 1. L5/S1 laminectomy with partial facetectomy and diskectomy 8.2 seconds of fluoroscopic guidance, for a cumulative dose of 2.06 mGy, was provided to Dr. Romero by the radiology department. C-arm images of the lumbar spine were saved for the patient's permanent record. [facility]
--- NOTE | 2021-10-28 | XR_ITS ---
WS: [id number] XR lumbar spine 1V [id number] REASON FOR EXAM: lumbar decompression FINDINGS: Surgical device overlying the left L5-S1 disc space. XR/XR lumbar spine 1V [id number] IMPRESSION: Intraoperative lumbar spine localization.
[2021-10-28] MEDS: sodium chloride 0.9% 1,000 ML 30 ML IV (06:57)
[2021-10-28] MEDS: fentaNYL 50 mcg/mL INJ 2mL IVP (07:10)
--- NOTE | 2021-10-28 07:18 | P.ANESUD_ITS ---
Pre-Anesthetic Update Pre-Anesthetic Assessment: Date of Surgery/Procedure: 10/28/21 Preop Nedra gnosis: Lumbar Radiculopathy L5-S1 Proposed Procedure: Operation Date: 10/28/21 08:00 Proposed Procedures p Lumbar Spine Decompression L5/S1(Not Applicable) - Hector Romero, DO Any changes to Pre-Anesthetic Assessment?: No Last Intake: Intake Last Liquid Date 10/27/21 Last Liquid Time 21:30 Last Solid Date 10/27/21 Last Solid Time 20:00 Vitals: Temperature 98.3 F 10/28/21 06:45 Temperature Source Temporal Artery S can 10/28/21 06:45 Pulse Rate 78 10/28/21 06:45 Pulse Rhythm 10/28/21 06:49 Pulse Strength 3+ Normal 10/28/21 06:49 Respiratory Rate 18 10/28/21 07:10 Respiratory Effort Non-Labored 10/28/21 07:10 Respiratory Depth Normal 10/28/21 07:10 Respiratory Patter n 10/28/21 07:10 Blood Pressure 142/88 10/28/21 06:45 Blood Pressure Anne n 106 10/28/21 06:45 Pulse Oximetry 95 10/28/21 07:10 Oxygen Delivery Me thod 10/28/21 06:49 Exam: Pre-Anes Outpt Exam: alert, oriented x 3, clear to auscultation bilaterally and regular rate & rhythm Cardiac Studies: No Data to Display
--- NOTE | 2021-10-28 08:59 | PM.HP ---
Providers/Chief Complaint Primary Care Provider: Flor Padilla MD Chief Complaint: Lumbar radiculopathy History of Present Illness Joselyn Dye is a 60 year old female patient who is here today to follow up after steroid injections with Dr. Talbert. Per patient injection did not relieve pain. Patient rates pain at 8/10 in clinic today. Patient has been taking oxycodone QID for pain. Review of Systems Narrative: General ROS: negative for weight changes, fever ENT ROS: negative for nasal congestion, drainage or bleeding, sore throat, dysphagia or ear pain Eyes: PERRL Hematological and Lymphatic ROS: negative for swollen glands or abnormal bleeding Endocrine ROS: negative for polyuria/polydpsia or new changes in weight Respiratory ROS: negative for cough, shortness of breath, or wheezing Cardiovascular ROS: negative for chest pain or dyspnea on exertion Gastrointestinal ROS: negative for reflux, abdominal pain, change in bowel habits, or black or bloody stools Musculoskeletal ROS: negative for back pain, neck pain, or joint pain or swelling except for current problem Neurological ROS: negative for TIA or stoke symptoms Skin: no rashes Medications/Allergies Home Medications Medication Instructions Recorded Confirmed Last Taken Type atorvastatin 20 mg tablet 20 mg PO BEDTIME 10/20/19 10/28/21 10/27/21 History diazepam 10 mg tablet 10 mg PO DAILY PRN 10/20/19 10/28/21 10/27/21 History omeprazole 40 mg capsule,delayed 40 mg PO DAILY 10/20/19 10/28/21 10/27/21 History release trazodone 150 mg tablet 150 mg PO BEDTIME 10/20/19 10/28/21 10/27/21 History Wheelchair #1 ea 08/25/21 10/18/21 Unknown Rx gabapentin 300 mg capsule 300 mg PO TID 30 Days #90 cap 10/18/21 10/28/21 10/28/21 Rx oxycodone-acetaminophen 7.5 mg-325 1 tab PO QID PRN 30 Days #120 tab 10/18/21 10/28/21 10/28/21 Rx mg tablet Allergies Allergy/AdvReac Type Severity Reaction Status Date / Time hydrocodone Allergy Unknown Verified 10/28/21 06:43 PFSH Acute PFSH: Medical History Acute back pain Anorexia Arthritis of right hip Avascular necrosis of bone of right hip CA of rectum Chronic back pain Chronic depression Encounter for long-term opiate analgesic use NICOLE (generalized anxiety disorder) Hx of hepatitis C Left forearm pain Opioid contract exists Other fracture of upper and lower end of right fibula, initial encounter for closed fracture Primary osteoarthritis of right hip Renal and ureteric calculus Sciatica, right side Trochanteric bursitis of right hip Ureteral calculus, right Ureteral stone Surgical History H/O left knee surgery History of rectal surgery History of total right hip arthroplasty Hx of brain surgery Hx of dilation and curettage Hx of lithotripsy Hx of splenectomy Hx of tonsillectomy Status post laser lithotripsy of ureteral calculus Family History Mother Hypertension Social History Smoking and tobacco status: former smoker Quit status (tobacco): has quit using tobacco Second hand smoke exposure: No Alcohol intake: never Adopted: No Caregiver/support person: No Lives independently: No Marital status: Current occupational status: disabled History of recent travel: No Vitals/I&O/Wt Last Vital Signs Temp 98.3 F 10/28/21 06:45 Pulse 78 10/28/21 06:45 Resp 18 10/28/21 07:10 BP 142/88 10/28/21 06:45 Pulse Ox 95 10/28/21 07:10 Weight last 48 hrs Weight 145 lb Weight 145 lb Physical Exam Narrative: EXAM NARRATIVE: CONSTITUTIONAL: The patient is a normal appearing [] in no apparent distress. GENERAL: Patient in no acute distress. CARDIAC: Regular rate and rhythm. CHEST: Normal inspiratory effort, normal respiratory rate. ABDOMEN: Soft and nontender. SKIN: Clear, warm and intact. NEURO?PSYCH: The patient is alert and oriented to person, place and time. Sensorv /SILT Motor StrengthShoulder abduction C5 5/5Wrist extension C6 5/5Elbow extension C7 5/5Hand Nurse Discharge Planner C8 5/5Finger abduction T15/5 Radial/ Ulnar/ Median n intact LowerSensory (SILT)Motor StrengthHin flexion L2/3Ant/inner thigh 5/5Hip adduction L2/3 5/5Knee extension L4 Lat thigh, 5/5Toe dorsiflexion L5 5/5Ankle dorsiflexion L5/ F69Dykoelz flexion S1 5/5 DTRBleeps 2+Triceps 2+Brachioradialis 2+Patellar 2+Achilles 2+ MUSCULOSKELETAL: [] UPPEREXTREMITIES: The patient had full active ROM in fingers, wrist, elbow, and shoulder. The patient demonstrated ability to fully flex/extend/abduct/adduct fingers, make ok sign, cross 2nd/3rd digits, extend 1st digit fully.. Radial pulse 2+, CR<2 seconds. LOWER EXTREMITIES: Pt has full, active ROM of toes, ankle, knee, and hip. Dorsalis pedis/posterior tibialis pulses 2+, CR<2 seconds. SPINE: Skin warm, dry, intact. A&P Assessment and plan (1) Lumbar stenosis with neurogenic claudication: Left L5/S1 micro disk Status: Acute Attestations Medical Necessity Statement*: failed conservative tx Coding Level of Care Code Acute Wood Tank Erector for Domi Renee Diagnoses Lumbar stenosis with neurogenic claudication M48.062
--- NOTE | 2021-10-28 10:24 | P.OP_ITS ---
Operative Report Date of procedure: October 28, 2021 Pre-op Diagnosis: Lumbar Radiculopathy L5-S1 Post-op diagnosis: same Procedure Done: 1. L5/S1 laminectomy with partial facetectomy and diskectomy Surgeon: Hector Romero Event Lighting Specialist: Orlando Plata Event Lighting Specialist: The surgical technologist, Orlando Plata, ZAIRE was needed for his expertise under the microscope. He was important and necessary throughout the procedure to complete in a safe and timely manner. He assisted with patient positioning prepping and draping tissue retraction suctioning of the operative field protection of the dural sac and tissue closure Anesthesia: General Estimated blood loss (mL): 5 Condition: stable Disposition: PACU Procedure: 1. L5/S1 laminectomy with partial facetectomy and diskectomy Patient is brought to the operative suite. After undergoing anesthesia they are placed in the prone position. All areas of impingement are well padded. Patient is then prepped and draped in the normal sterile fashion. A skin incision is made over the L5/S1 level. This is confirmed under c-arm guidance. A series of dilators are passed and the tubular retractor is docked on the L5 lamina. A bovie is used to clear the soft tissue off the lamina and the L 5/S1 facet joint. A high speed stefan is then used to perform the laminectomy and take down the medial aspect of the L 5/S1 facet joint. A kerrison rongeure was then used to take down the remaining lamina and smooth the edge of the laminectomy up to the point where the ligamentum flavum attaches. Attention was then brought to the medial aspect of the facet joint. The rem aining medial aspect of the superior and inferior aspect of the facet joint were taken down with the kerrison from the pedicle of L5 to S1. The facet joint had significant hypertrophy. Attention was then brought to the Ligamentum Flavum. The ligament was taken down from the lamina of L5 to S1 and out medially to the remaining facet joint. The ligament was thick. The dura was then exposed. The dura was in good repair. The S1 nerve was then retracted medially with a Geri'Georgie nerve root retractor. The disc was identified and was removed with a micropituitary the disc base was irrigated any free fragments were removed with a micropituitary The L5 nerve was then traced with a curette out the L5/S1 foramen and found to be adequately decompressed. The S1 nerve was traced with a curette around the S1 pedicle. The lateral recess was opened with a kerrison helping to further decompress the S1 nerve. Wound is then irrigated copiously with saline and surgiflo is used to stop any bleeding. The tubular retractor is removed and the wound is closed with vicryl and monocryl suture. Glue is then used to protect the wound. A sterile dressing is then placed. Patient was then placed in the supine position and transferred to the PACU in stable condition.
[2021-10-28] MEDS: HYDROmorphone 1 mg/mL INJ 1 mL 0.2 MG IVP (11:12)
[2021-10-28] MEDS: oxyCODONE 5 mg IR Tab/Cap 20 MG PO (11:13)
--- NOTE | 2021-10-28 11:37 | PC.NURSE ---
Dr. Pereyra called and notifed that patient was shivering and had been given several warm blankets; 12.5mg of demerol order received.
[2021-10-28] MEDS: meperidine 50 mg/mL INJ 12.5 MG IVP (11:39)
--- NOTE | 2021-10-28 13:16 | ANE.PACU2 ---
Inpatient post-anesthesia follow up: Airway intact: Yes Vital signs: Temperature 98 F Pulse Rate 82 Respiratory Rate 19 Blood Pressure 133/91 Pulse Oximetry 94 Oxygen Delivery Me thod Room Air Oxygen Flow Rate 2 Fraction of Inspir ed Oxygen Hydration adequate: Yes Nausea and vomiting: No Pain level: 2 Mental status: Baseline
== END 2021-10-28 13:10 | disposition home or self-care (01) ==
PROVIDERS: PCP Internal Medicine; Visit Provider Orthopaedic Surgery
PROC: (CPT 63005; principal; 2021-10-28 08:00)
DX: M48.062 Spinal stenosis, lumbar region with neurogenic claudication (principal); J44.9 Chronic obstructive pulmonary disease, unspecified; K21.9 Gastro-esophageal reflux disease without esophagitis; E78.5 Hyperlipidemia, unspecified; F41.9 Anxiety disorder, unspecified; M16.10 Unilateral primary osteoarthritis, unspecified hip; Z85.048 Personal history of other malignant neoplasm of rectum, rectosigmoid junction, and anus; Z86.19 Personal history of other infectious and parasitic diseases; Z87.891 Personal history of nicotine dependence
CPT/HCPCS: 63047; 72020; 76000; 96374; 96375; J0690; J1100; J1170; J2175; J2310; J2370; J2405; J2704; J2710; J3010; J3490; J7030

== ENCOUNTER → 2022-01-26 13:04 | Outpatient (BNVA) | payer MEDICARE, SELFPAY | PROVIDERS: PCP Internal Medicine; Visit Provider Orthopaedic Surgery | DX: Z47.89 Encounter for other orthopedic aftercare (principal); Z98.890 Other specified postprocedural states | CPT/HCPCS: 99024 ==

== ENCOUNTER 2022-02-08 12:02 | Outpatient (CLI) | payer MEDICARE, SELFPAY ==
--- NOTE | 2022-02-08 12:10 | MM_ITS ---
WS: [id number] BILATERAL 3D TOMOSYNTHESIS DIGITAL SCREENING MAMMOGRAPHY WITH CAD CLINICAL INFORMATION: SCREENING HISTORY: Screening mammogram. No current complaints. COMPARISON: August 20, 2020 TECHNIQUE: Bilateral CC and MLO views. FINDINGS: Scattered fibroglandular densities bilaterally. A few incidental punctate calcifications. 6mm asymmet ricky density anterior RIGHT breast best seen on the MLO view. Recommend spot compression views and ult rasound for further evaluation. LEFT breast is unremarkable and unchanged. MM/[place] [id number] IMPRESSION: BI-RADS: 0-Incomplete: Need additional imaging evaluation FOLLOW UP: Need Additional Imaging Recommend RIGHT breast diagnostic mammography and ultrasound for further evalua tion.
== END 2022-02-08 12:03 | disposition home or self-care (01) ==
PROVIDERS: PCP Internal Medicine; Visit Provider Internal Medicine
DX: Z12.31 Encounter for screening mammogram for malignant neoplasm of breast (principal)
CPT/HCPCS: 77063; 77067

== ENCOUNTER 2022-03-27 13:36 | Outpatient (CLI) | payer MEDICARE, SELFPAY ==
--- NOTE | 2022-03-27 13:49 | MM_ITS ---
WS: [id number] RIGHT 3D TOMOSYNTHESIS DIGITAL MAMMOGRAPHY WITH CAD CLINICAL INFORMATION: ABNORMAL MAMMO COMPARISON: March 27, 2022 TECHNIQUE: 3 views of the right breast were obtained. FINDINGS: Scattered fibroglandular densities of the right breast. Previously described 6 mm asymmetric density inferior RIGHT breast not as well seen today on the spot compression views. This appears to partially compress out. ULTRASOUND BREAST RIGHT TECHNIQUE: Ultrasound right breast focused area of concern. CLINICAL INFORMATION: ABNORMAL MAMMO FINDINGS: Ultrasound RIGHT breast 10 to 2:00 position. Normal underlying parenchymal tissue. Dense band of pare nchymal tissue at 10:00. No cystic or solid lesions. No suspicious lesions to target for biopsy. MM/[place] [id number] IMPRESSION: BI-RADS: 2-Benign FOLLOW UP: 1 Year Follow-up Recommend return to annual screening mammography.
--- NOTE | 2022-03-27 14:18 | US_ITS ---
WS: [id number] RIGHT 3D TOMOSYNTHESIS DIGITAL MAMMOGRAPHY WITH CAD CLINICAL INFORMATION: ABNORMAL MAMMO COMPARISON: March 27, 2022 TECHNIQUE: 3 views of the right breast were obtained. FINDINGS: Scattered fibroglandular densities of the right breast. Previously described 6 mm asymmetric density inferior RIGHT breast not as well seen today on the spot compression views. This appears to partially compress out. ULTRASOUND BREAST RIGHT TECHNIQUE: Ultrasound right breast focused area of concern. CLINICAL INFORMATION: ABNORMAL MAMMO FINDINGS: Ultrasound RIGHT breast 10 to 2:00 position. Normal underlying parenchymal tissue. Dense band of pare nchymal tissue at 10:00. No cystic or solid lesions. No suspicious lesions to target for biopsy. US/US breast RT limited* [id number] IMPRESSION: BI-RADS: 2-Benign FOLLOW UP: 1 Year Follow-up Recommend return to annual screening mammography.
== END 2022-03-27 13:37 | disposition home or self-care (01) ==
PROVIDERS: PCP Internal Medicine; Visit Provider Internal Medicine
DX: R92.8 Other abnormal and inconclusive findings on diagnostic imaging of breast (principal); R92.2 Inconclusive mammogram
CPT/HCPCS: 76642; 77065

== ENCOUNTER 2022-08-30 09:59 | Emergency (ER) | payer MEDICARE, SELFPAY ==
[2022-08-30 10:01] VITALS: BP 153/106; PULSE 107; RESP 18; TEMP 36.6; O2SAT 94; BMI 23.0
--- NOTE | 2022-08-30 10:06 | XR_ITS ---
WS: [id number] Exam: XR wrist LT min 3V* [id number] Date/Time of Exam: 08/30/2022 10:06 AM Reason For Exam: fall with left wrist pain There is an impacted fracture of the distal radial metaphysis with shortening and [id number] do rsal angulation of the articulating surface. No dislocation noted. No other fractures. XR/XR wrist LT min 3V* [id number] IMPRESSION: 1. Impacted dorsally angulated fracture of the distal radius as noted above.
--- NOTE | 2022-08-30 10:06 | XR_ITS ---
WS: [id number] Exam: XR elbow LT min 3V* [id number] Date/Time of Exam: 08/30/2022 10:06 AM Reason For Exam: fall with elbow pain No obvious fracture. The elbow is flexed as the patient could not tolerate the usual positioning and views. Soft tissues are unremarkable. Recommendations: Repeat study with the usual views would be recommended as soon as the patient's cond ition will allow. XR/XR elbow LT min 3V* [id number] IMPRESSION: 1. Suboptimal exam due to the patient's inability to fully cooperate for the us ual views. No obvious fracture.
--- NOTE | 2022-08-30 10:07 | W.ED.EXTPRO ---
Documented by User: DAYDAY Freeman 08/30/22 15:14 HPI - Extremity Problem General: Chief complaint: Extremity Injury, Upper Stated complaint: light arm pain Time Seen by Provider: 08/30/22 10:04 History of Present Illness: Patient is a 61-year-old female comes to the ED with left arm pain. Patient states that she injured her arm today when she fell. She was walking up her ramp at her house and tripped and fell. Her left arm hit ramp. She is now complaining of having left wrist and left elbow pain. She rates her pain currently a 10 out of 10. Denies any head trauma or loss of consciousness. Associated symptoms: Deny chest pain, fever(s) or rash Review of Systems Const: Denies: fever(s), chills or fatigue Eyes: Denies: change in vision or eye discomfort ENMT: Denies: throat pain, odynophagia, nasal discharge or nasal congestion Card: Denies: chest pain, palpitations, edema, swelling of feet/ankles, dyspnea on exertion or orthopnea Resp: Denies: dyspnea, productive cough or non-productive cough GI: Denies: abdominal pain, nausea, vomiting, diarrhea, constipation or hematochezia : Denies: flank pain, dysuria or hematuria Musc: Reports: extremity pain (Left elbow and left wrist pain); Denies: neck pain, back pain or extremity swelling Skin/Breast: Denies: rash or new lesions Neuro: Denies: headache(s), numbness in extremities or weakness in extremities PFS ED PFSH: Medical History Acute back pain Anorexia Arthritis of right hip Avascular necrosis of bone of right hip CA of rectum Chronic back pain Chronic depression Encounter for long-term opiate analgesic use NICOLE (generalized anxiety disorder) Hx of hepatitis C Left forearm pain Opioid contract exists Other fracture of upper and lower end of right fibula, initial encounter for closed fracture Primary osteoarthritis of right hip Renal and ureteric calculus Sciatica, right side Trochanteric bursitis of right hip Ureteral calculus, right Ureteral stone Surgical History H/O left knee surgery History of rectal surgery History of total right hip arthroplasty Hx of brain surgery Hx of dilation and curettage Hx of lithotripsy Hx of splenectomy Hx of tonsillectomy Status post laser lithotripsy of ureteral calculus Family History Mother Hypertension Social History Smoking and tobacco status: former smoker Quit status (tobacco): has quit using tobacco Second hand smoke exposure: No Alcohol intake: never Adopted: No Caregiver/support person: No Lives independently: No Marital status: Current occupational status: disabled History of recent travel: No Physical Exam Const: COMMON NORMALS: patient oriented x3 and alert GENERAL APPEARANCE: cooperative HENMT: COMMON NORMALS: normocephalic HEAD & SCALP: normocephalic MOUTH: Normal oral and palatal mucosa present THROAT: posterior oropharynx normal and uvula midline Neck/C-Spine: COMMON NORMALS: supple GENERAL: Yes normal visual inspection Resp: COMMON NORMALS: normal respiratory effort, No retractions, No use of accessory muscles and clear to auscultation bilaterally AUSCULTATION: clear to auscultation bilaterally Cardio: COMMON NORMALS: regular rate, regular rhythm, S1 normal heart sound present, S2 normal heart sound present, No gallops present (Cardio), No clicks present (Cardio), No murmurs present (Cardio) and Peripheral pulses 2+ throughout RATE: regular rate RHYTHM: regular rhythm HEART SOUNDS: S1 normal heart sound present and S2 normal heart sound present PERIPHERAL PULSES: Peripheral pulses 2+ throughout GI: COMMON NORMALS: Normal to inspection, nondistended, normoactive bowel sounds present, Soft to palpation, non-tender and no masses PALPATION: Yes Soft to palpation : COMMON NORMALS: Yes no CVA tenderness BLADDER/KIDNEY EXAM: Yes no CVA tenderness Back/Pelvis: COMMON NORMALS: no CVA tenderness Extremity: NARRATIVE EXTREMITY EXAM: Left arm?no deformity noted. Tenderness to palpation of the elbow region and wrist area. Limited range of motion in elbow and wrist due to pain. Neurovascular intact distally. Neuro: COMMON NORMALS: patient oriented x3 SENSORIUM/ORIENTATION: Yes alert GAIT: Yes Normal gait present Skin: GENERAL SKIN EXAM: dry skin Course Vital Signs: Vital signs: Vital Signs Temperature 98 F 08/30/22 10:01 Pulse Rate 75 08/30/22 11:49 Respiratory Rate 22 H 08/30/22 11:37 Blood Pressure 153/106 08/30/22 10:01 Pulse Oximetry 95 08/30/22 11:49 Oxygen Delivery Me thod 08/30/22 10:33 MDM - Extremity (Nontraumatic) Medical Decision Making Patient is a 61-year-old female comes to the ED with left arm pain. Patient states that she injured her arm today when she fell. She was walking up her ramp at her house and tripped and fell. Her left arm hit ramp. She is now complaining of having left wrist and left elbow pain. She rates her pain currently a 10 out of 10. Denies any head trauma or loss of consciousness. Vitals are stable. Patient has severe tenderness over the radial aspect of left wrist. She is neurovascular intact distally. Limited range of motion due to pain. X-ray of left elbow showed no obvious fractures. Left wrist x-ray showed impacted dorsally angulated fracture of the distal radius. I placed an order with case management for patient be referred to Ortho for follow-up on wrist fracture. Wrist was placed in a volar splint she was discharged home with a prescription for Percocet to help with pain. Return to ED precautions given. Patient understood and agreed with plan. I reviewed patient case with Dr. Jeffery he agreed with plan. Lab Data Radiology Impressions Elbow X-Ray 08/30/22 10:06 IMPRESSION: 1. Suboptimal exam due to the patient's inability to fully cooperate for the usual views. No obvious fracture. Wrist X-Ray 08/30/22 10:06 IMPRESSION: 1. Impacted dorsally angulated fracture of the distal radius as noted above. Discharge Plan Discharge Patient Disposition: Home Clinical Impression: Wrist fracture, left Qualifiers: Encounter type: initial encounter Fracture type: closed Qualified Code(s): S62.102A - Fracture of unspecified carpal bone, left wrist, initial encounter for closed fracture Condition: Stable Prescriptions: No Action diazepam 10 mg tablet See Rx Instructions .ROUTE .COMPLEX Rx Instructions: 5MG PO QAM AND 10MG PO BEDTIME PRN trazodone 150 mg tablet 150 mg PO BEDTIME omeprazole 40 mg capsule,delayed release(DR/EC) 40 mg PO DAILY atorvastatin 20 mg tablet 20 mg PO BEDTIME (DME) Wheelchair See Rx Instructions .Route .MEDSUPPLY Qty: 1 0RF Rx Instructions: As directed multivitamin Tablet 1 tab PO DAILY loperamide 2 mg capsule 2 - 4 mg PO DAILY PRN (Reason: Diarrhea) Discharge Orders: Discharge ED (Routine); Ordered 08/30/22 Ordered By: Madan Robertson Referrals: Flor Padilla MD [Primary Care Provider] - Discharge Diet: Regular Discharge Activity: Limit activity as instructed Patient Instructions: Wrist Fracture in Adults (ED), Opioid Safety Activity Restrictions/Additional Instructions: Follow-up with medical provider as directed. Case management should be contacting you next several days to set up an appoint with Ortho for follow-up on wrist fracture. Take medications as prescribed. Return to the ER or your medical provider if condition worsens. Please read and understand discharge instructions. Thank you for choosing [facility] for your healthcare needs today. Please realize this is an emergency room and that we are providing you with a medical screening exam and this may not be complete and all inclusive of all the testing and or work up that you may need to determine your ailment or severity of your illness. It is very important that you follow up as instructed or that you return to the Emergency Department should you have concerns or if your condition changes or worsens in any way. Coding Level of Care Code ED Sole Sewer Hand for Chg Fwd Exam Comprehensive Documented by User: Cristóbal Dunaway DO 08/30/22 17:19 HPI - Extremity Problem General: Chief complaint: Extremity Injury, Upper Stated complaint: light arm pain Time Seen by Provider: 08/30/22 10:04 [facility] ED PFS: Medical History Acute back pain Anorexia Arthritis of right hip Avascular necrosis of bone of right hip CA of rectum Chronic back pain Chronic depression Encounter for long-term opiate analgesic use NICOLE (generalized anxiety disorder) Hx of hepatitis C Left forearm pain Opioid contract exists Other fracture of upper and lower end of right fibula, initial encounter for closed fracture Primary osteoarthritis of right hip Renal and ureteric calculus Sciatica, right side Trochanteric bursitis of right hip Ureteral calculus, right Ureteral stone Surgical History H/O left knee surgery History of rectal surgery History of total right hip arthroplasty Hx of brain surgery Hx of dilation and curettage Hx of lithotripsy Hx of splenectomy Hx of tonsillectomy Status post laser lithotripsy of ureteral calculus Family History Mother Hypertension Social History Smoking and tobacco status: former smoker Quit status (tobacco): has quit using tobacco Second hand smoke exposure: No Alcohol intake: never Adopted: No Caregiver/support person: No Lives independently: No Marital status: Current occupational status: disabled History of recent travel: No Course Vital Signs: Vital signs: Vital Signs Temperature 98 F 08/30/22 10:01 Pulse Rate 75 08/30/22 11:49 Respiratory Rate 22 H 08/30/22 11:37 Blood Pressure 153/106 08/30/22 10:01 Pulse Oximetry 95 08/30/22 11:49 Oxygen Delivery Me thod 08/30/22 10:33 MDM - Extremity (Nontraumatic) Medical Decision Making Patient is a 61-year-old female comes to the ED with left arm pain. Patient states that she injured her arm today when she fell. She was walking up her ramp at her house and tripped and fell. Her left arm hit ramp. She is now complaining of having left wrist and left elbow pain. She rates her pain currently a 10 out of 10. Denies any head trauma or loss of consciousness. Vitals are stable. Patient has severe tenderness over the radial aspect of left wrist. She is neurovascular intact distally. Limited range of motion due to pain. X-ray of left elbow showed no obvious fractures. Left wrist x-ray showed impacted dorsally angulated fracture of the distal radius. I placed an order with case management for patient be referred to Ortho for follow-up on wrist fracture. Wrist was placed in a volar splint she was discharged home with a prescription for Percocet to help with pain. Return to ED precautions given. Patient understood and agreed with plan. I reviewed patient case with Dr. Dunaway he agreed with plan. Chart reviewed and patient discussed with midlevel. Agree with assessment and plan. Lab Data Radiology Impressions Elbow X-Ray 08/30/22 10:06 IMPRESSION: 1. Suboptimal exam due to the patient's inability to fully cooperate for the usual views. No obvious fracture. Wrist X-Ray 08/30/22 10:06 IMPRESSION: 1. Impacted dorsally angulated fracture of the distal radius as noted above. Discharge Plan Discharge Patient Disposition: Home Clinical Impression: Wrist fracture, left Qualifiers: Encounter type: initial encounter Fracture type: closed Qualified Code(s): S62.102A - Fracture of unspecified carpal bone, left wrist, initial encounter for closed fracture Condition: Stable Prescriptions: No Action diazepam 10 mg tablet See Rx Instructions .ROUTE .COMPLEX Rx Instructions: 5MG PO QAM AND 10MG PO BEDTIME PRN trazodone 150 mg tablet 150 mg PO BEDTIME omeprazole 40 mg capsule,delayed release(DR/EC) 40 mg PO DAILY atorvastatin 20 mg tablet 20 mg PO BEDTIME (DME) Wheelchair See Rx Instructions .Route .MEDSUPPLY Qty: 1 0RF Rx Instructions: As directed multivitamin Tablet 1 tab PO DAILY loperamide 2 mg capsule 2 - 4 mg PO DAILY PRN (Reason: Diarrhea) Discharge Orders: Discharge ED (Routine); Ordered 08/30/22 Ordered By: Madan Robertson Referrals: Flor Padilla MD [Primary Care Provider] - Discharge Diet: Regular Discharge Activity: Limit activity as instructed Patient Instructions: Wrist Fracture in Adults (ED), Opioid Safety Activity Restrictions/Additional Instructions: Follow-up with medical provider as directed. Case management should be contacting you next several days to set up an appoint with Ortho for follow-up on wrist fracture. Take medications as prescribed. Return to the ER or your medical provider if condition worsens. Please read and understand discharge instructions. Thank you for choosing [facility] for your healthcare needs today. Please realize this is an emergency room and that we are providing you with a medical screening exam and this may not be complete and all inclusive of all the testing and or work up that you may need to determine your ailment or severity of your illness. It is very important that you follow up as instructed or that you return to the Emergency Department should you have concerns or if your condition changes or worsens in any way. Coding Level of Care Code ED Sole Sewer Hand for Lyric Duran Exam Comprehensive
[2022-08-30] MEDS: morphine 4 mg/mL SDV 1 mL IM (10:30)
[2022-08-30 10:33] VITALS: PULSE 82; O2SAT 93
--- NOTE | 2022-08-30 10:54 | PC.SOCIAL ---
Addendum entered by Peyton Gaona 10/04/22 13:07: Patient had a follow up appointment with ortho - patient did attend appointment. Original Note: Ortho Referral Referral sent to ortho for scheduling. Clinic to contact patient with appt date/time.
[2022-08-30 11:37] VITALS: RESP 22; O2SAT 95
[2022-08-30] MEDS: oxyCODONE-APAP 5-325 mg Tablet 1 TAB PO (11:37)
[2022-08-30 11:49] VITALS: PULSE 75; O2SAT 95
== END 2022-08-30 11:48 | disposition home or self-care (01) ==
PROVIDERS: Emergency Provider Physician Assistant; PCP Internal Medicine
DX: S52.502A Unspecified fracture of the lower end of left radius, initial encounter for closed fracture (principal); Z87.891 Personal history of nicotine dependence; Z85.048 Personal history of other malignant neoplasm of rectum, rectosigmoid junction, and anus; Z86.19 Personal history of other infectious and parasitic diseases; W01.0XXA Fall on same level from slipping, tripping and stumbling without subsequent striking against object, initial encounter
CPT/HCPCS: 29125; 73080; 73110; 96372; 99283; 99284; A4590; J2270

== ENCOUNTER → 2022-08-31 09:58 | Outpatient (BNVA) | payer MEDICARE, SELFPAY | PROVIDERS: PCP Internal Medicine; Visit Provider Student in an Organized Health Care Education/Training Program | DX: S52.559A Other extraarticular fracture of lower end of unspecified radius, initial encounter for closed fracture (principal) | CPT/HCPCS: 99204 ==

== ENCOUNTER 2022-09-01 11:23 | Day surgery (SDC) | payer MEDICARE, SELFPAY ==
[2022-09-01] VITALS (9 sets, daily range): BP systolic 121–156; BP diastolic 79–110; PULSE 73–94; RESP 12–92; TEMP 36.3–36.7; O2SAT 91–98
--- NOTE | 2022-09-01 | SCC_ITS ---
Procedure done: Left distal radius open reduction internal fixation 60 seconds of fluoroscopic guidance, for a cumulative dose of 1.186 mGy, was provided to Dr. Robertson by the radiology department. C-arm images of the wrist were saved for the patient's permanent record. [facility]
[2022-09-01] MEDS: sodium chloride 0.9% 1,000 ML 30 ML IV (11:59)
[2022-09-01] MEDS: ketorolac 30 mg/mL INJ IVP (12:00)
[2022-09-01] MEDS: gabapentin 300 mg Capsule PO (12:00)
[2022-09-01] MEDS: acetaminophen 1,000 MG/100 ML PIGGYBACK 400 MG IV (12:00)
--- NOTE | 2022-09-01 12:17 | P.ANESASSM_ITS ---
Pre-Anesthetic Assessment Height/Weight: Height 1.63 m Weight 61.689 kg Temp Pulse Resp BP Pulse Ox O2 Del Method 98.1 F 94 18 149/110 91 09/01/22 11:47 09/01/22 11:47 09/01/22 11:47 09/01/22 11:47 09/01/22 11:47 09/01/22 11:54 Preop Diagnosis: Left distal radius fracture displaced and angulated Operation Date: 09/01/22 13:00 Proposed Procedures p Open reduction internal fixation of the left distal radius with anthrax volar plate:[id number] S52.552A(Left) - Marek Ailyn, Familial anesthetic complications: none Was Beta Vicki taken within 24 hours: N/A Was Clonidine taken within 24 hours: N/A Last intake: Intake Last Liquid Date 08/31/22 Last Liquid Time 20:30 Last Solid Date 08/31/22 Last Solid Time 20:00 Social Tobacco and No alcohol Exam alert, oriented x 3, clear to auscultation bilaterally and regular rate & rhythm Airway Mallampati: Class II Dentition: other (multiple missing, poor dentitoin) Pulmonary Chronic Obstructive Pulmonary Disease CV/HEM None reported None reported Hepatic None reported GI Gastroesophageal Reflux Disease Metabolic Hyperlipidemia [facility] Lower Back Pain Anesthetic Plan ASA status: 3 Anesthesia: MAC and Regional (specify below) Risk of > 500 ml blood loss (7ml/kg in children): No Medications/Allergies Home Medications Medication Instructions Recorded Confirmed Last Taken Type atorvastatin 20 mg tablet 20 mg PO BEDTIME 10/20/19 08/31/22 08/31/22 21:00 History diazepam 10 mg tablet See Rx Instructions .Route .COMPLEX 10/20/19 08/31/22 08/31/22 21:30 History omeprazole 40 mg capsule,delayed 40 mg PO DAILY 10/20/19 08/31/22 08/31/22 21:30 History release trazodone 150 mg tablet 150 mg PO BEDTIME 10/20/19 08/31/22 08/31/22 21:00 History Wheelchair #1 ea 08/25/21 08/31/22 Unknown Rx loperamide 2 mg capsule 2 - 4 mg PO DAILY PRN Diarrhea 08/30/22 08/31/22 08/30/22 History multivitamin 1 tab PO DAILY 08/30/22 08/31/22 08/31/22 08:00 History Allergies Allergy/AdvReac Type Severity Reaction Status Date / Time hydrocodone Allergy ADR/ALGY-Pa Verified 08/31/22 10:17 lpitations Current Medications Generic Name Dose Route Start Last Admin Trade Name Pratik PRN Reason Stop Dose Admin Sodium Chloride 1,000 mls @ 30 mls/hr 09/01/22 11:30 09/01/22 11:59 Sodium Chloride 0.9% IV 09/02/22 11:29 30 mls/hr .Q24H ASHKAN Administration PFSH Anesthesia Medical History (Updated 08/31/22 @ 10:55 by Marek Robertson DO) Acute back pain Anorexia Arthritis of right hip Avascular necrosis of bone of right hip CA of rectum Chronic back pain Chronic depression Closed extra-articular fracture of distal end of radius Encounter for long-term opiate analgesic use NICOLE (generalized anxiety disorder) Hx of hepatitis C Left forearm pain Opioid contract exists Other fracture of upper and lower end of right fibula, initial encounter for closed fracture Primary osteoarthritis of right hip Renal and ureteric calculus Sciatica, right side Trochanteric bursitis of right hip Ureteral calculus, right Ureteral stone Surgical History H/O left knee surgery History of rectal surgery History of total right hip arthroplasty Hx of brain surgery Hx of dilation and curettage Hx of lithotripsy Hx of splenectomy Hx of tonsillectomy Status post laser lithotripsy of ureteral calculus Family History Mother Hypertension Social History Smoking and tobacco status: former smoker Quit status (tobacco): has quit using tobacco Second hand smoke exposure: No Alcohol intake: never Adopted: No Caregiver/support person: No Lives independently: No Marital status: Current occupational status: disabled History of recent travel: No Data Anesthesia Cardiac Studies: No Data to Display
--- NOTE | 2022-09-01 12:18 | ANES.PROC ---
Anesthesia Procedures Procedure/Date: 09/01/22 Nerve Block ^: Nerve Block 1: Main Anesthesia: other (MAC) Time Out Performed: Yes Consent: requested by attending/covering physician, from patient, risks and benefits reviewed and patient agrees to proceed Nerve block location: axillary (L axillary + musculocutaneous) Anesthesia monitors applied: pulse oximetry, EKG, BP cuff and oxygen Nerve block position: supine Anesthetic Used: ropivicaine 0.5% (30 ml) and with decadron (4 mg) Ultrasound used to: recognize landmarks and visualize and ID brachial plexus Nerve Stimulator Used?: No Interscalene/Femoral BLK: 2 stimuplex 22 g needle used for position and inplane approach, visualize local anesthetic spread and no vascular puncture identified Injection: neg aspiration of heme and paresthesia +/- Patient Tolerated Procedure: well and no complications Complications: none
--- NOTE | 2022-09-01 12:59 | W.PM.OPSUD ---
Surgery/Procedure H&P Update DATE OF PROCEDURE: September 01, 2022 DATE H&P PERFORMED: 08/31/22 CHANGES TO PREVIOUS DOCUMENTATION: None PREOP DIAGNOSIS: Left distal radius fracture displaced and angulated PRIMARY INDICATION FOR PROCEDURE: Left distal radius displaced and angulated extra-articular PLANNED PROCEDURE: Operation Date: 09/01/22 13:00 Proposed Procedures p Open reduction internal fixation of the left distal radius with anthrax volar plate:[id number] S52.552A(Left) - Marek Robertson DO
[2022-09-01] MEDS: ceFAZolin 2,000 MG in sodium chloride 0.9% (plus) 50 ML 100 MG IV (13:06)
--- NOTE | 2022-09-01 14:15 | P.OP_ITS ---
Brief Operative Note Date of procedure: 09/05/22 Pre-op diagnosis: Left distal radius fracture, extra-articular Post-op diagnosis: same Procedure Done: Left distal radius open reduction internal fixation Surgeon: Marek Robertson Estimated blood loss (mL): 5 Complications: None Post-op Plan: Patient taken to PACU in stable condition recovering well receive appropriate discharge instructions as well as pain medication postoperatively. Maintain volar splint until follow-up will see me in office in 2 weeks. Elevation and ice as needed. Condition: stable Disposition: same day Coding Level of Care Code Acute Electronics System Mechanic for Lyric Duran
--- NOTE | 2022-09-01 14:15 | PM.PACU ---
PACU note Narrative: Patient recovering well in PACU. Patient received regional anesthesia unable to assess motor or sensory. Fingertips are warm well perfused. Brisk capillary refill less than 2 seconds. Dressing on in place and clean dry and intact with volar splint. Exam: awake Disposition: discharged
--- NOTE | 2022-09-01 14:15 | PM.OP ---
Operative Report Date of procedure: September 01, 2022 Pre-op diagnosis: Preop Diagnosis Left distal radius fracture displaced and angulated Post-op diagnosis: Same Procedure done: Left distal radius open reduction internal fixation Implants: Arthrex narrow 3-hole volar distal radius plate combination of locking and nonlocking screws. Surgeon: Marek Robertson DO Estimated blood loss: 5 mL 28 IV fluids: See anesthesia record Complications: None Findings: See operative report narrative Condition: stable Disposition: same day Brief History: Patient is a 61-year-old female sustained a fall on an outstretched left arm and has a dorsally displaced and angulated left distal radius fracture. She was seen evaluated worked up in the outpatient setting and examination as well as radiographically confirm preoperative diagnosis. We had detailed discussion about nonoperative and operative treatment options. At this point time through shared decision-making she would like to proceed with left distal radius open reduction internal fixation. She had significant dorsal displacement deformity. As well as I think for stability with pain control as well as decreased period of time of roughly 6 weeks of cast immobilization to hopefully begin early range of motion she would like to proceed with surgical intervention. We detailed out the risk benefits complication alternatives of nonoperative and operative intervention. Understanding these risks she agrees to proceed with surgical intervention. All questions answered at this time. Consent was obtained in office. She is here for surgical intervention of left distal radius fracture. Procedure: Patient seen evaluated in the preoperative holding area. Consent was reviewed with patient the correct extremity was marked. Patient underwent regional anesthesia. Anesthesia department once appropriately anesthetized she was taken back to the operative suite. Left upper extremities placed on an armboard. She is on the OR table all bony prominences well-padded patient was appropriately secured to the bed. Nonsterile tourniquet was applied to the left upper extremity arm. She underwent anesthesia per the anesthesia department. Patient received appropriate preoperative antibiotics. Final timeout performed. Esmarch tourniquet was used to exsanguinate the left upper extremity and tourniquet was insufflated to 250 mmHg. I then performed a standard volar modified FCR approach. Sharp scalpel excision through skin and subcutaneous tissue incised the FCR tendon sheath. This is then mobilized ulnarly and utilized dissection scissors I then opened up the floor of the FCR. I then bluntly sweep the FPL tendon and a blunt self-retaining retractor was then applied. I directly visualized the pronator quadratus which was then incised in standard L fashion with sharp scalpel excision and elevator. This was taken ulnarly. Identified my fracture site as well as the proximal and distal fracture fragments this was extra-articular in nature two-part. I utilized my [place] inside the fracture and then helped elevate and reduce restore volar tilt once I had excellent contour on the volar cortex I then selected an Arthrex narrow 3-hole volar distal radius plate this was placed in appropriate position and K wires were placed both distally and proximally and confirmed to be in appropriate position. I first started drilling my proximal oblong hole had excellent bicortical fixation with a nonlocking screw. I remove my distal K wires and slid my plate slightly proximally to appropriate position. Next I reduced the distal fragment against the bone and then placed a bicortical screw just to compress the plate to bone distally I then sequentially drilled measured and locked in place 3 locking screws around this nonlocking screw distally. Next I removed the nonlocking screw and placed a shorter locking screw. This made for locking screws distally which are in excellent position and did not penetrate the dorsal cortex. This is reassuring underneath the subchondral bone. Next I sequentially drilled measured and placed 2 locking screws around the nonlocking screw proximally this completed my proximal fixation. This was all performed utilizing mini fluoroscopic C arm. I was satisfied with the placement of my screws and had excellent fixation I then took the wrist through range of motion there is smooth motion as well as no clicking. Stressed the DRUJ which was stable. This completed my fixation. Tourniquet was then deflated. Hemostasis satisfactory with bipolar electrocautery. Thorough irrigation of the wound bed. I then closed the subcutaneous layer with interrupted 3-0 Vicryl suture. I then closed the skin with running nylon mattress stitch. Xeroform 4 x 4's Curlex soft roll and a volar splint and Jose wrap was then applied. Patient was then awakened from anesthesia and taken to PACU in stable condition. Patient tolerated procedure without complications. Disposition: Patient tolerated procedure without complications. Taken to PACU in stable condition. Splint on in place clean dry and intact she received appropriate discharge instructions as well as pain medication postoperatively. She will see me in office in 2 weeks. Patient understands and agrees with current plan. All questions answered.
[2022-09-01] MEDS: oxyCODONE-APAP 5-325 mg Tablet 1 TAB PO (15:13)
--- NOTE | 2022-09-01 17:52 | ANE.PACU2 ---
Inpatient post-anesthesia follow up: Airway intact: Yes Vital signs: Temperature 97.5 F Pulse Rate 75 Respiratory Rate 18 Blood Pressure 148/92 Pulse Oximetry 93 Oxygen Delivery Me thod Room Air Oxygen Flow Rate 8 Fraction of Inspir ed Oxygen Hydration adequate: Yes Nausea and vomiting: No Pain level: 2 Mental status: Baseline
--- NOTE | 2022-09-04 | XR_ITS ---
NOTE: Report was unsigned for reason: Order was edited. Original Signature date and time was: 09/04/2022 1007 WS: [id number] C-ARM RADIOGRAPHS LEFT WRIST; 2 IMAGES HISTORY: orif wrist COMPARISON: 08/30/2022 Intraoperative imaging during plate and screw fixation of the distal radial fracture. Radial fracture has been reduced and now in good position and alignment. [facility] XR/XR wrist LT 2V [id number] IMPRESSION: Intraoperative fixation and reduction distal radial fracture.
== END 2022-09-01 15:35 | disposition home or self-care (01) ==
PROVIDERS: PCP Internal Medicine; Visit Provider Student in an Organized Health Care Education/Training Program
PROC: (CPT 25607; principal; 2022-09-01 12:50)
DX: S52.552A Other extraarticular fracture of lower end of left radius, initial encounter for closed fracture (principal); X58.XXXA Exposure to other specified factors, initial encounter; J44.9 Chronic obstructive pulmonary disease, unspecified; E78.5 Hyperlipidemia, unspecified; Z87.891 Personal history of nicotine dependence; K21.9 Gastro-esophageal reflux disease without esophagitis
CPT/HCPCS: 25607; 73100; 76000; C1713; J0131; J0690; J1100; J1885; J2250; J2704; J2795; J3010; J7030

== ENCOUNTER → 2022-10-02 10:54 | Outpatient (BNVA) | payer MEDICARE, SELFPAY | PROVIDERS: PCP Internal Medicine; Visit Provider Student in an Organized Health Care Education/Training Program | DX: S52.552A Other extraarticular fracture of lower end of left radius, initial encounter for closed fracture (principal); X58.XXXA Exposure to other specified factors, initial encounter | CPT/HCPCS: 73110 ==

== ENCOUNTER 2022-10-02 14:29 | Outpatient (CLI) | payer MEDICARE, SELFPAY | END 2022-10-02 14:30 | disposition home or self-care (01) | LOC: SPT 14:30 | PROVIDERS: PCP Internal Medicine; Visit Provider Student in an Organized Health Care Education/Training Program | DX: Z46.89 Encounter for fitting and adjustment of other specified devices (principal); S52.552D Other extraarticular fracture of lower end of left radius, subsequent encounter for closed fracture with routine healing; X58.XXXD Exposure to other specified factors, subsequent encounter; Z98.890 Other specified postprocedural states | CPT/HCPCS: 97760; 99024; L3908 ==

== ENCOUNTER → 2023-03-27 08:13 | Outpatient (BNVA) | payer MEDICARE, SELFPAY | PROVIDERS: PCP Internal Medicine; Visit Provider Orthopaedic Surgery | DX: M48.062 Spinal stenosis, lumbar region with neurogenic claudication (principal) | CPT/HCPCS: 72110; 99214 ==

== ENCOUNTER 2023-04-10 08:31 | Outpatient (CLI) | payer MEDICARE, SELFPAY ==
--- NOTE | 2023-04-10 08:45 | MR_ITS ---
WS: [id number] MRI LUMBAR SPINE NONCONTRAST TECHNIQUE: Sagittal T1, T2 and STIR imaging. Axial T1 and T2 imaging. CLINICAL INFORMATION: pain COMPARISON: MRI August 18, 2021 FINDINGS: Mild lumbar curve. No acute compression. Mild disc bulging worse at L1-L2 and L2-L3. Interval LEFT he milaminectomy L5-S1. L1-L2: Mild bilobed disc bulging with mild central canal stenosis. Narrowing of the subarticular rece ss bilaterally. Foramen are patent. Mild facet arthropathy. L2-L3: Mild annular bulging. Slight effacement of ventral thecal sac. Tiny annular fissure. Foramen a re patent. Mild facet arthropathy. L3-L4: Mild annular bulging with slight effacement of ventral thecal sac. Mild facet arthropathy. Spi nal canal and foramen are patent. L4-L5: Mild annular bulging with narrowing of the subarticular recess bilaterally. Mild facet arthrop athy. Foramen are patent. L5-S1: Postoperative changes LEFT hemilaminectomy. Granulation tissue tissue in the subarticular rece ss contacts the LEFT S1 nerve root. Mild facet arthropathy. Mild LEFT greater than RIGHT foraminal na rrowing. Postoperative changes at this level are new from previous. Visualized pelvic bony structures: Normal. Paravertebral soft tissues: Normal. Tiny RIGHT renal cyst. IVC filter. Mild disc bulging cervical spine at C5-C6 and C6-C7. MR/MR lumbar spine wo con* [id number] IMPRESSION: 1. Postoperative changes LEFT hemilaminectomy L5-S1 appears new from previous. 2. Postoperative changes with soft tissue in the LEFT subarticular recess like ly granulation tissue. Recommend correlation for LEFT S1 nerve root symptoms. T his can be further evaluated with gadolinium if concern for recurrent protrusio n and this location. 3. Mild LEFT greater than RIGHT L5-S1 foraminal narrowing. 4. Mild central canal stenosis L1-L2 and L2-L3 unchanged from previous. 5. No other significant changes
== END 2023-04-10 08:32 | disposition home or self-care (01) ==
LOC: RAD 08:35
PROVIDERS: PCP Internal Medicine; Visit Provider Orthopaedic Surgery
DX: M48.062 Spinal stenosis, lumbar region with neurogenic claudication (principal)
CPT/HCPCS: 72148

== ENCOUNTER → 2023-04-19 09:05 | Outpatient (BNVA) | payer MEDICARE, SELFPAY | PROVIDERS: PCP Internal Medicine; Visit Provider Orthopaedic Surgery | DX: Z09 Encounter for follow-up examination after completed treatment for conditions other than malignant neoplasm (principal); M48.062 Spinal stenosis, lumbar region with neurogenic claudication; M54.16 Radiculopathy, lumbar region | CPT/HCPCS: 36415; 80053; 85025; 99214 ==

== ENCOUNTER 2023-04-30 07:43 | Day surgery (SDC) | payer MEDICARE, SELFPAY ==
[2023-04-30] VITALS (18 sets, daily range): BP systolic 101–147; BP diastolic 60–95; PULSE 79–121; RESP 15–18; TEMP 36.1–36.6; O2SAT 92–99; BMI 24.5
--- NOTE | 2023-04-30 | XR_ITS ---
WS: [id number] Exam: XR lumbar spine 1V [id number] Date/Time of Exam: 04/30/2023 12:00 AM Reason For Exam: L5-S1 decompression A single AP C-arm image of the lower lumbar spine was obtained for intraoperative localization purpos es.
[2023-04-30] MEDS: sodium chloride 0.9% 1,000 ML 30 ML IV (08:18)
--- NOTE | 2023-04-30 09:05 | ANES.PREANE2 ---
Pre-Anesthetic Assessment Height/Weight: Height 1.63 m Weight 64.864 kg Temp Pulse Resp BP Pulse Ox O2 Del Method 97.6 F 79 16 135/87 96 Room Air 04/30/23 07:59 04/30/23 07:59 04/30/23 07:59 04/30/23 07:59 04/30/23 07:59 04/30/23 07:59 Operation Date: 04/30/23 09:20 Proposed Procedures p L4-5 Lumbar Spine Decompression(Not Applicable) - Hector Romero DO Familial anesthetic complications: none Was Beta Vicki taken within 24 hours: N/A Was Clonidine taken within 24 hours: N/A Last intake: Intake Last Liquid Date 04/29/23 Last Liquid Time 20:00 Last Solid Date 04/29/23 Last Solid Time 20:00 Social Tobacco and No alcohol Exam alert, oriented x 3 and regular rate & rhythm Airway Submandibular: within normal limits Cervical ROM: within normal limits Mallampati: Class II Dentition: false Pulmonary Chronic Obstructive Pulmonary Disease Metabolic chronic steroid Musc/skel Lower Back Pain and Osteoarthritis/DJD Neuropsych chronic pain/opioid Anesthetic Plan ASA status: 3 Anesthesia: General Medications/Allergies Home Medications Medication Instructions Recorded Confirmed Last Taken Type atorvastatin 20 mg tablet 20 mg PO BEDTIME 10/20/19 04/27/23 04/29/23 History diazepam 10 mg tablet 10 mg PO DAILY 10/20/19 04/27/23 04/29/23 History trazodone 150 mg tablet 150 mg PO BEDTIME 10/20/19 04/27/23 04/29/23 History Wheelchair #1 ea 08/25/21 04/19/23 Unknown Rx loperamide 2 mg capsule 2 - 4 mg PO DAILY PRN Diarrhea 08/30/22 04/27/23 04/29/23 History multivitamin 1 tab PO DAILY 08/30/22 04/27/23 04/29/23 History cock up wrist brace #1 ea 10/02/22 04/19/23 Unknown Rx prednisone 20 mg tablet 20 mg PO DAILY #15 tabs 04/19/23 04/27/23 04/29/23 Rx gabapentin 300 mg capsule 300 mg PO TID 04/25/23 04/27/23 04/29/23 History Allergies Allergy/AdvReac Type Severity Reaction Status Date / Time hydrocodone Allergy ADR/ALGY-Pa Verified 04/27/23 10:14 lpitations Current Medications Generic Name Dose Route Start Last Admin Trade Name Pratik PRN Reason Stop Dose Admin Sodium Chloride 1,000 mls @ 30 mls/hr 04/30/23 08:00 04/30/23 08:18 Sodium Chloride 0.9% IV 05/01/23 07:59 30 mls/hr .Q24H ASHKAN Administration PFSH Anesthesia Medical History Acute back pain Anorexia Arthritis of right hip Avascular necrosis of bone of right hip CA of rectum Chronic back pain Chronic depression Closed extra-articular fracture of distal end of radius Encounter for long-term opiate analgesic use NICOLE (generalized anxiety disorder) Hx of hepatitis C Left forearm pain Opioid contract exists Other fracture of upper and lower end of right fibula, initial encounter for closed fracture Primary osteoarthritis of right hip Renal and ureteric calculus Sciatica, right side Trochanteric bursitis of right hip Ureteral calculus, right Ureteral stone Surgical History H/O left knee surgery History of rectal surgery History of total right hip arthroplasty Hx of brain surgery Hx of dilation and curettage Hx of lithotripsy Hx of splenectomy Hx of tonsillectomy Status post laser lithotripsy of ureteral calculus Family History (Updated 04/25/23 @ 10:53 by Terry Siu NP) Mother Hypertension Denies family history of Chronic kidney disease (CKD) Anesthesia complication Bleeding disorder Social History Smoking and tobacco status: former smoker Quit status (tobacco): has quit using tobacco Second hand smoke exposure: No Alcohol intake: never Substance/Drug Use: never Adopted: No Caregiver/support person: No Lives independently: No Marital status: Current occupational status: disabled Data Anesthesia Cardiac Studies: No Data to Display
[2023-04-30] MEDS: HYDROmorphone 1 mg/mL INJ 1 mL 0.5 MG IVP (09:16)
--- NOTE | 2023-04-30 09:28 | W.PM.OPSUD ---
Surgery/Procedure H&P Update DATE OF PROCEDURE: April 30, 2023 DATE H&P PERFORMED: 04/23/23 H&P UPDATE INFORMATION: I have reviewed H&P completed within last 30 days, I have examined patient prior to procedure and No changes to prior documentation PLANNED PROCEDURE: Operation Date: 04/30/23 09:20 Proposed Procedures p L4-5 Lumbar Spine Decompression(Not Applicable) - Hector Romero DO
[2023-04-30] MEDS: ceFAZolin 2,000 MG in sodium chloride 0.9% (plus) 50 ML 100 MG IV (09:51)
[2023-04-30] MEDS: lidocaine-epi 1% 20 mL INJ INJECTION (10:23)
--- NOTE | 2023-04-30 11:05 | P.OP_ITS ---
Operative Report Date of procedure: April 30, 2023 Post-op diagnosis: same Procedure done: Revision L5-S1 laminectomy with partial facetectomy and discectomy Surgeon: Hector Romero [employer] Supervisor: none Estimated blood loss (mL): 5 Procedure: Revision L5-S1 laminectomy with partial facetectomy and discectomy Patient is brought to the operative suite. After undergoing anesthesia they are placed in the prone position. All areas of impingement are well padded. Patient is then prepped and draped in the normal sterile fashion. A skin incision is made over the L5-S1 level. This is confirmed under c-arm guidance. A series of dilators are passed and the tubular retractor is docked on the L5 lamina. A bovie is used to clear the soft tissue off the lamina and the L 5/S1 facet joint. A high speed stefan is then used to perform the laminectomy and take down the medial aspect of the L 5/S1 facet joint. A kerrison rongeure was then used to take down the remaining lamina and smooth the edge of the laminectomy up to the point where the ligamentum flavum attaches. Attention was then brought to the medial aspect of the facet joint. The remaining medial aspect of the superior and inferior aspect of the facet joint were taken down with the kerrison from the pedicle of L5 to S1. The facet joint had significant hypertrophy. There was also scar tissue which was taken down with a small curved curette. Attention was then brought to the Ligamentum Flavum. The ligament was taken down from the lamina of L5 to S1 and out medially to the remaining facet joint. The ligament was thick. The dura was then exposed. The dura was in good repair. The L5 nerve was then traced with a curette out the L5/S1 foramen and found to be adequately decompressed. The S1 nerve was traced with a curette around the S1 pedicle. The lateral recess was opened with a kerrison helping to further decompress the s1 nerve. Retractor was placed after curved curette was used to free up scar tissue. The disc was placed and disc fragments removed with micropituitary. Wound is then irrigated copiously with saline and surgiflo is used to stop any bleeding. The tubular retractor is removed and the wound is closed with vicryl and monocryl suture. Glue is then used to protect the wound. A sterile dressing is then placed. Patient was then placed in the supine position and transferred to the PACU in stable condition.
[2023-04-30] MEDS: fentaNYL 50 mcg/mL INJ 2mL IVP ×2 (11:40→11:54)
[2023-04-30] MEDS: oxyCODONE 5 mg IR Tab/Cap PO (12:27)
--- NOTE | 2023-04-30 14:27 | ANE.PACU2 ---
Inpatient post-anesthesia follow up: Airway intact: Yes Vital signs: Temperature 97.8 F Pulse Rate 93 Respiratory Rate 16 Blood Pressure 121/79 Pulse Oximetry 92 Oxygen Delivery Me thod Room Air Oxygen Flow Rate 1 Fraction of Inspir ed Oxygen Hydration adequate: Yes Nausea and vomiting: No Pain level: 3 Mental status: Baseline
== END 2023-04-30 13:12 | disposition home or self-care (01) ==
PROVIDERS: PCP Internal Medicine; Visit Provider Orthopaedic Surgery
PROC: (CPT 63005; principal; 2023-04-30 09:20)
DX: M51.17 Intervertebral disc disorders with radiculopathy, lumbosacral region (principal); J44.9 Chronic obstructive pulmonary disease, unspecified; Z79.52 Long term (current) use of systemic steroids; Z87.891 Personal history of nicotine dependence
CPT/HCPCS: 63042; 72020; 76000; J0690; J1100; J1170; J2405; J2704; J2710; J3010; J3490; J7030

== ENCOUNTER 2023-05-03 15:49 | Emergency (ER) | payer MEDICARE, SELFPAY ==
[2023-05-03 15:55] VITALS: BP 112/76; PULSE 97; RESP 15; TEMP 36.7; O2SAT 92
--- NOTE | 2023-05-03 16:38 | ED_ITS ---
HPI - Back Pain/Injury General: Chief Complaint: Back Pain/Injury Stated Complaint: back and leg pain, back surg done sunday Time Seen by Provider: 05/03/23 16:26 Source: patient Mode of arrival: ambulatory History of Present Illness: 60-year-old female presents emergency room with complaint of worsening low back pain and left leg radicular pain. Patient recently had surgery with Dr. Romero. Patient had an L5-S1 laminectomy with partial facetectomy and discectomy. MD elicited complaint: back pain Pertinent past history: prior back pain Onset (ago): day(s) Timing: constant Severity: moderate Similar Symptoms Previously: Yes Quality: sharp Location: lumbar spine Radiation: left upper leg and left leg below the knee Exacerbating factors: sitting upright and walking Relieving factors: supine Associated symptoms: Deny abdominal pain, arthralgias, chills, change in bowel habits, difficulty walking, dysuria, fatigue, fecal incontinence, fever(s), hematuria, myalgias, nausea, numbness, syncope, tingling/numbness/burning, urinary frequency, urinary urgency, vomiting or weakness Review of Systems Const: Denies: fever(s), chills, fatigue or malaise ENMT: Denies: throat pain, ear or mastoid pain, nasal discharge or nasal congestion Card: Denies: chest pain, palpitations, irregular heart rhythm, edema or syncope Resp: Denies: dyspnea, productive cough or non-productive cough GI: Denies: abdominal pain, nausea, vomiting, fecal incontinence or change in bowel habits : Denies: dysuria, urinary urgency or hematuria Musc: Reports: back pain and extremity pain Skin/Breast: Denies: rash or pruritus Neuro: Denies: difficulty walking PFSH ED PFSH: Medical History Acute back pain Anorexia Arthritis of right hip Avascular necrosis of bone of right hip CA of rectum Chronic back pain Chronic depression Closed extra-articular fracture of distal end of radius Encounter for long-term opiate analgesic use NICOLE (generalized anxiety disorder) Hx of hepatitis C Left forearm pain Opioid contract exists Other fracture of upper and lower end of right fibula, initial encounter for closed fracture Primary osteoarthritis of right hip Renal and ureteric calculus Sciatica, right side Trochanteric bursitis of right hip Ureteral calculus, right Ureteral stone Surgical History H/O left knee surgery History of rectal surgery History of total right hip arthroplasty Hx of brain surgery Hx of dilation and curettage Hx of lithotripsy Hx of splenectomy Hx of tonsillectomy Status post laser lithotripsy of ureteral calculus Family History Mother Hypertension Denies family history of Chronic kidney disease (CKD) Anesthesia complication Bleeding disorder Social History Smoking and tobacco status: former smoker Quit status (tobacco): has quit using tobacco Second hand smoke exposure: No Alcohol intake: never Substance/Drug Use: never Adopted: No Caregiver/support person: No Lives independently: No Marital status: Current occupational status: disabled Physical Exam HENMT: COMMON NORMALS: normocephalic, atraumatic and hearing grossly normal bilaterally HEAD & SCALP: normocephalic and atraumatic Resp: COMMON NORMALS: normal respiratory effort, No retractions, No use of accessory muscles and clear to auscultation bilaterally AUSCULTATION: clear to auscultation bilaterally Cardio: COMMON NORMALS: regular rate, regular rhythm and No murmurs present (Cardio) RATE: regular rate RHYTHM: regular rhythm GI: COMMON NORMALS: Soft to palpation and No hepatosplenomegaly present AUSCULTATION: Yes normoactive bowel sounds PALPATION: Yes Soft to palpation, No Tenderness to palpation present (GI), No Guarding due to palpation present (GI) and Yes No hepatosplenomegaly present Extremity: COMMON NORMALS: normal to inspection, capillary refill normal, no clubbing, cyanosis or edema, no calf tenderness and no pedal edema Skin: COMMON NORMALS: no rashes or lesions noted GENERAL SKIN EXAM: no rashes or lesions noted Course Vital Signs: Vital signs: Vital Signs Temperature 98.0 F 05/03/23 15:55 Pulse Rate 83 05/03/23 17:00 Respiratory Rate 16 05/03/23 17:00 Blood Pressure 143/82 05/03/23 17:00 Pulse Oximetry 97 05/03/23 17:00 Oxygen Delivery Me thod Room Air 05/03/23 17:00 MDM - Back Pain/Injury Medical Decision Making On first arrival patient is complaining of low back pain with left leg radicular pain that is worsened since her surgery. However when she arrived she was quite active and mobile moving around when laid down in the bed she was even somewhat lethargic appeared to be over medicated and sedate. Nurse noted that she desatted into the 70s and she was dozing off while talking to the nurse during triage. Patient's been given oxycodone and diazepam. She relates her sedation to the gabapentin she has been taking however she has been on this for some time. Her pain is well controlled at this point. We did give her prednisone. I did not give her any further narcotics as it was concerned about worsening or oversedation. The lethargy and sedation improved on its own during the time that she was here. Patient was upset that she perceived we were accusing her of taking too much for narcotics. I discussed with her that her medications as prescribed may result in significant sedation even if taken exactly as prescribed. Our concern was that we not exacerbate this by giving her further sedating medications. This was resolved to her satisfaction. Explained to her the plan will discharge her home on prednisone. She has a pain contract according to the chart we will have her follow-up with Dr. Romero and the pain clinic return if she has further problems. Medical Records I reviewed the patient's medical records. Labs I reviewed the patient's lab results. Discharge Plan Discharge Patient Disposition: Home Clinical Impression: Status post lumbar surgery, Opioid contract exists, Lumbar back pain with radiculopathy affecting left lower extremity, Lumbar disc herniation Condition: Stable Prescriptions: New prednisone 20 mg tablet 20 mg PO TID Qty: 15 0RF Rx Instructions: 1 p.o. 3 times daily x3 days, 1 p.o. twice daily x2 days, 1 p.o. daily x2 days Discontinued prednisone 20 mg tablet 20 mg PO DAILY Qty: 15 0RF Rx Instructions: 60mg on day 1,2,3 40mg on day 4,5 20mg on day 6,7 No Action diazepam 10 mg tablet 10 mg PO DAILY Rx Instructions: 5MG PO QAM AND 10MG PO BEDTIME PRN trazodone 150 mg tablet 150 mg PO BEDTIME atorvastatin 20 mg tablet 20 mg PO BEDTIME (DME) cock up wrist brace See Rx Instructions .Route .MEDSUPPLY Qty: 1 0RF Rx Instructions: As directed gabapentin 300 mg capsule 300 mg PO TID (DME) Wheelchair See Rx Instructions .Route .MEDSUPPLY Qty: 1 0RF Rx Instructions: As directed multivitamin Tablet 1 tab PO DAILY loperamide 2 mg capsule 2 - 4 mg PO DAILY PRN (Reason: Diarrhea) Discharge Orders: Discharge ED (Routine); Ordered 05/03/23 Ordered By: Cristóbal Dunaway Referrals: Flor Padilla MD [Primary Care Provider] - Patient Instructions: Opioid Safety, Pain Management Activity Restrictions/Additional Instructions: You are seen today for postoperative pain from your back surgery. Recommend you start the oral steroid taper tomorrow. To stop any other steroid you have previously been taking. Continue use previously prescribed pain medication as prescribed. When using the pain medication the diazepam in combination should remember that these will both be very sedating. Follow-up with Dr. Romero next week. Coding Level of Care Code ED [facility] [place] [facility] for Lyric Duran
[2023-05-03 17:00] VITALS: BP 143/82; PULSE 83; RESP 16; O2SAT 97
[2023-05-03] MEDS: ketorolac 60 mg/2 mL INJ IM (17:20)
[2023-05-03] MEDS: dexamethasone 10 mg/mL INJ IM (17:20)
== END 2023-05-03 17:40 | disposition home or self-care (01) ==
PROVIDERS: Emergency Provider Family Medicine; PCP Internal Medicine
DX: M51.16 Intervertebral disc disorders with radiculopathy, lumbar region (principal); Z79.899 Other long term (current) drug therapy; Z87.891 Personal history of nicotine dependence
CPT/HCPCS: 96372; 99284; J1100; J1885

== ENCOUNTER → 2023-05-15 13:27 | Outpatient (BNVA) | payer MEDICARE, SELFPAY | PROVIDERS: PCP Internal Medicine; Visit Provider Physician Assistant | DX: Z47.89 Encounter for other orthopedic aftercare (principal) | CPT/HCPCS: 99024 ==

== ENCOUNTER → 2023-05-22 11:17 | Outpatient (BNVA) | payer MEDICARE, SELFPAY | PROVIDERS: PCP Internal Medicine; Visit Provider Orthopaedic Surgery | DX: Z47.89 Encounter for other orthopedic aftercare (principal) | CPT/HCPCS: 99024 ==

== ENCOUNTER → 2023-06-19 13:52 | Outpatient (BNVA) | payer MEDICARE, SELFPAY | PROVIDERS: PCP Internal Medicine; Visit Provider Orthopaedic Surgery | DX: Z47.89 Encounter for other orthopedic aftercare (principal) | CPT/HCPCS: 99024 ==

== ENCOUNTER 2023-07-17 13:00 | Outpatient (CLI) | payer MEDICARE, SELFPAY ==
--- NOTE | 2023-07-17 13:00 | MR_ITS ---
WS: [id number] MRI LUMBAR SPINE NONCONTRAST HISTORY: low back pain COMPARISON: 04/10/2023 TECHNIQUE: Sagittal and axial multisequence imaging is submitted. Mild increase in thoracic kyphosis. Very slight straightening of the posterior lumbar alignment. No marrow edema or fracture. Mild disc space narrowing and desiccation. Most significant at L5-S1. Conus terminates normally at L1-2 disc level. L1-L2: Mild bilobed paracentral disc bulging/protrusions. Disc encroachment upon the ventral thecal s ac similar to the prior study. Mild bilateral subarticular recess encroachment. L2-L3: Mild annular disc bulging with a central annular fissure. Similar to the prior study. Mild lig amentum flavum hypertrophy. Very mild encroachment upon the subarticular recesses. L3-L4: Very minimal annular disc bulging with facet arthritis. No stenosis. L4-L5: Mild annular disc bulging with ligamentum flavum and facet arthritis. No stenosis L5-S1: Mild annular disc bulging. Prior LEFT hemilaminectomy. There is increased low signal extending into the LEFT subarticular recess. This is similar to the prior study. There is additional small harish tral disc protrusion. There is contact on both the S1 nerve roots. Similar to the prior study. The in creased low signal in the LEFT subarticular recess may be granulation tissue. This can be evaluated w ith postcontrast imaging if necessary. Bilateral facet arthritis. Mild bilateral foraminal stenosis, LEFT greater than RIGHT. Postoperative changes in the soft tissues from the LEFT hemilaminectomy at L5-S1. IMPRESSION: 1. Prior LEFT hemilaminectomy at L5-S1. 2. Increased low signal in the LEFT subarticular recess of L5-S1. Similar to the prior study and this is likely granulation tissue as previously described. This soft tissue does contact the LEFT S1 nerv e root. This can be further evaluated with gadolinium if continued concern for disc protrusion. 3. Mild bilateral foraminal stenosis, LEFT greater than RIGHT at L5-S1. 4. Stable bilobed paracentral disc protrusions at L1-2. Mild bilateral subarticular recess encroachme nt. 5. No high-grade central stenosis.
== END 2023-07-17 13:01 | disposition home or self-care (01) ==
PROVIDERS: PCP Internal Medicine; Visit Provider Orthopaedic Surgery
DX: M54.16 Radiculopathy, lumbar region (principal); Z98.890 Other specified postprocedural states; M48.07 Spinal stenosis, lumbosacral region; M51.26 Other intervertebral disc displacement, lumbar region
CPT/HCPCS: 72148

== ENCOUNTER → 2023-08-14 15:09 | Outpatient (BNVA) | payer MEDICARE, SELFPAY | PROVIDERS: PCP Internal Medicine; Visit Provider Orthopaedic Surgery | DX: Z47.89 Encounter for other orthopedic aftercare (principal); M54.9 Dorsalgia, unspecified; M79.606 Pain in leg, unspecified | CPT/HCPCS: 99214 ==

== ENCOUNTER 2024-02-07 14:40 | Outpatient (CLI) | payer MEDICARE, SELFPAY ==
--- NOTE | 2024-02-07 14:45 | MM_ITS ---
WS: [id number] SCREENING DIGITAL TOMOSYNTHESIS MAMMOGRAM WITH CAD HISTORY: SCREENING COMPARISON: 03/27/2022, 02/08/2022 and 08/20/2020 Bilateral CC and MLO with tomosynthesis views submitted. Synthetic mammography reviewed. Computer aid ed detection analyzed. Breast composition: There are scattered areas of fibroglandular density. No suspicious masses, microc alcifications or architectural distortion. IMPRESSION: MM/[place] [id number] BI-RADS: 1-Negative FOLLOW UP: 1 Year Follow-up
== END 2024-02-07 14:41 | disposition home or self-care (01) ==
LOC: MOBLMAM 14:43
PROVIDERS: PCP Internal Medicine; Visit Provider Internal Medicine
DX: Z12.31 Encounter for screening mammogram for malignant neoplasm of breast (principal)
CPT/HCPCS: 77063; 77067

== ENCOUNTER → 2024-03-11 10:35 | Outpatient (BNVA) | payer MEDICARE, SELFPAY | PROVIDERS: PCP Internal Medicine; Referring Provider Internal Medicine; Visit Provider Anesthesiology Pain Medicine | DX: M54.31 Sciatica, right side (principal); M51.37 Other intervertebral disc degeneration, lumbosacral region; M54.16 Radiculopathy, lumbar region; M48.062 Spinal stenosis, lumbar region with neurogenic claudication; M51.26 Other intervertebral disc displacement, lumbar region; Z98.890 Other specified postprocedural states | CPT/HCPCS: 99204 ==

== ENCOUNTER → 2024-03-13 15:13 | Outpatient (BNVA) | payer MEDICARE, SELFPAY | PROVIDERS: PCP Internal Medicine; Visit Provider Nurse Practitioner Family | DX: L82.0 Inflamed seborrheic keratosis (principal); L70.0 Acne vulgaris; L82.1 Other seborrheic keratosis; D22.5 Melanocytic nevi of trunk; L81.4 Other melanin hyperpigmentation; L57.8 Other skin changes due to chronic exposure to nonionizing radiation | CPT/HCPCS: 17110; 99203 ==

== ENCOUNTER → 2024-03-20 12:56 | Outpatient (BNVA) | payer MEDICARE, SELFPAY | PROVIDERS: PCP Internal Medicine; Visit Provider Anesthesiology Pain Medicine | DX: M54.16 Radiculopathy, lumbar region (principal); M48.062 Spinal stenosis, lumbar region with neurogenic claudication | CPT/HCPCS: 64483; 64484; J1100; J3490 ==

== ENCOUNTER → 2024-04-02 14:00 | Outpatient (BNVA) | payer MEDICARE, SELFPAY | PROVIDERS: PCP Internal Medicine; Visit Provider Anesthesiology Pain Medicine | DX: M48.062 Spinal stenosis, lumbar region with neurogenic claudication (principal); M54.31 Sciatica, right side; M51.37 Other intervertebral disc degeneration, lumbosacral region; M54.16 Radiculopathy, lumbar region; M51.26 Other intervertebral disc displacement, lumbar region; Z98.890 Other specified postprocedural states | CPT/HCPCS: 99214 ==

== ENCOUNTER → 2024-11-03 15:00 | Outpatient (BNVA) | payer MEDICARE, SELFPAY | PROVIDERS: PCP Internal Medicine; Visit Provider Anesthesiology Pain Medicine | DX: M48.062 Spinal stenosis, lumbar region with neurogenic claudication; M51.26 Other intervertebral disc displacement, lumbar region; M54.16 Radiculopathy, lumbar region; M54.31 Sciatica, right side; W19.XXXA Unspecified fall, initial encounter; R03.0 Elevated blood-pressure reading, without diagnosis of hypertension; Z98.890 Other specified postprocedural states; X58.XXXA Exposure to other specified factors, initial encounter | CPT/HCPCS: 72110; 99214 ==

== ENCOUNTER → 2024-11-19 13:14 | Outpatient (BNVA) | payer MEDICARE, SELFPAY | PROVIDERS: PCP Internal Medicine; Visit Provider Anesthesiology Pain Medicine | DX: M54.16 Radiculopathy, lumbar region (principal); M48.062 Spinal stenosis, lumbar region with neurogenic claudication | CPT/HCPCS: 64483; 64484; J1100; J3490 ==

== ENCOUNTER → 2024-12-01 13:50 | Outpatient (BNVA) | payer MEDICARE, SELFPAY | PROVIDERS: PCP Internal Medicine; Visit Provider Anesthesiology Pain Medicine | DX: M48.062 Spinal stenosis, lumbar region with neurogenic claudication (principal); R03.0 Elevated blood-pressure reading, without diagnosis of hypertension; M54.31 Sciatica, right side; M54.16 Radiculopathy, lumbar region; M51.26 Other intervertebral disc displacement, lumbar region; Z98.890 Other specified postprocedural states | CPT/HCPCS: 99213 ==

== ENCOUNTER → 2025-05-25 13:26 | Outpatient (BNVA) | payer MEDICARE, SELFPAY | PROVIDERS: PCP Internal Medicine; Visit Provider Anesthesiology Pain Medicine | DX: M48.062 Spinal stenosis, lumbar region with neurogenic claudication (principal); R03.0 Elevated blood-pressure reading, without diagnosis of hypertension; M54.31 Sciatica, right side; M51.379 Other intervertebral disc degeneration, lumbosacral region without mention of lumbar back pain or lower extremity pain; M54.16 Radiculopathy, lumbar region; M51.26 Other intervertebral disc displacement, lumbar region; Z98.890 Other specified postprocedural states | CPT/HCPCS: 99214 ==